=== PATIENT | male | born 1940 | race Caucasian/White ===

== ENCOUNTER 2022-04-25 09:50 | Outpatient (CLI) | payer MEDICARE, BC, SELFPAY ==
[2022-04-25 14:00] LABS: Basophils Absolute Auto 0.04 K/uL (0.00-0.30); Basophils Percent Auto 0.4 % (0.0-3.0); Eosinophils Absolute Auto 0.34 K/uL (0.00-0.50); Eosinophils Percent Auto 3.2 % (0.0-7.0); Hematocrit 36.9 % (37.0-53.0); Hemoglobin* 12.3 gm/dL (13.5-17.5); Immature Granulocytes Abs Auto 0.01 K/uL (0.00-0.30); Immature Granulocytes Pct Auto 0.1 %; Lymphocytes Percent Auto 13.2 % (20-44); Mean Corpuscular HGB Conc 33 gm/dL (32-36); Mean Corpuscular Hemoglobin 29 pg (26-34); Mean Corpuscular Volume 87 fL (80-100); Monocytes Percent Auto 7.3 % (0.0-11.0); Neutrophils Percent Auto 75.8 % (42.0-72.0); Platelet Count* 257 K/uL (140-440); RDW Coefficient of Variation % 12.8 % (11.5-15.5); Red Blood Count 4.25 m/uL (4.30-5.90); White Blood Count* 10.53 K/uL (4.50-11.00)
[2022-04-25 14:04] LABS: Slide Review Reflex No
== END 2022-04-25 09:51 | disposition home or self-care (01) ==
LOC: FBOREF 09:51
PROVIDERS: PCP Family Medicine; Visit Provider Family Medicine
DX: D64.9 Anemia, unspecified (principal)
CPT/HCPCS: 85025

== ENCOUNTER 2023-01-24 09:46 | Outpatient (CLI) | payer MEDICARE, BC, SELFPAY | END 2023-01-24 09:47 | disposition home or self-care (01) | PROVIDERS: PCP Family Medicine; Visit Provider Family Medicine | DX: I10 Essential (primary) hypertension (principal); E78.5 Hyperlipidemia, unspecified; D64.9 Anemia, unspecified | CPT/HCPCS: 80048; 80061; 84460 ==

== ENCOUNTER 2023-12-12 11:02 | Outpatient (CLI) | payer MEDICARE, BC, SELFPAY | END 2023-12-12 11:03 | disposition home or self-care (01) | PROVIDERS: PCP Family Medicine; Visit Provider Family Medicine | DX: E78.5 Hyperlipidemia, unspecified (principal); I10 Essential (primary) hypertension; Z12.5 Encounter for screening for malignant neoplasm of prostate | CPT/HCPCS: 80048; 80061; 84460; 85025; G0103 ==

== ENCOUNTER 2024-01-14 08:56 | Outpatient (CLI) | payer MEDICARE, BC, SELFPAY ==
--- NOTE | 2024-01-14 09:00 | CRLHL7_ITS ---
For Patients: As a result of the Century Cures Act, medical imaging exams and procedure reports are released immediately into your electronic medical record. You may view this report before your referring provider. If you have questions, please contact your health care provider. INDICATION: Otorrhea. Technique Noncontrast CT images of the temporal bones. COMPARISON: None. FINDINGS: Right Side: The external auditory canal is widely patent. Thickened tympanic membrane. Moderate opacification of the middle ear cavity, including severe opacification of the epitympanum. The ossicles are intact. The scutum is blunted. No evidence for otosclerosis. Normal morphology of the inner ear structures. Thinning of the superior semicircular canal roof raises the possibility of dehiscence. Severe mastoid air cell opacification. Left side: The external auditory canal is widely patent. The tympanic membrane is slightly thickened. Mild opacification of the middle ear cavity including Prussak space. The ossicles and scutum are intact. No evidence for otosclerosis. Normal morphology of the inner ear structures. Superior semicircular canal dehiscence. Moderate opacification of the mastoid air cells. Other: Moderate mucosal thickening in the maxillary sinuses. IMPRESSION: Right-side: 1. Moderate opacification of the middle ear cavity, including severe opacification of the epitympanum. The ossicles are intact. The scutum is blunted, raising the possibility of cholesteatoma. 2. Severe opacification of the mastoid air cells. 3. Thinning of the superior semicircular canal roof raises the possibility of dehiscence. Left side: 1. Mild opacification of the middle ear cavity. The ossicles and scutum are intact. 2. Moderate opacification of the mastoid air cells. 3. Superior semicircular canal dehiscence. Please note that all CT scans at this facility use dose modulation, iterative reconstruction, and/or weight-based dosing when appropriate to reduce radiation dose to as low as reasonably achievable. Dictated by Raul Ventura MD @ 01/22/2024 4:21:57 PM (Electronically Signed)
== END 2024-01-14 08:57 | disposition home or self-care (01) ==
LOC: CT 08:57
PROVIDERS: PCP Family Medicine; Visit Provider Otolaryngology
DX: H92.10 Otorrhea, unspecified ear (principal); H74.8X3 Other specified disorders of middle ear and mastoid, bilateral
CPT/HCPCS: 70480

== ENCOUNTER 2024-12-25 11:27 | Emergency (ER) | payer MEDICARE, BC, SELFPAY ==
--- OUTSIDE RECORDS SUMMARY | 2024-08-18 04:15 | XMS_ITS ---
Author Organization [facility] Address [address] [place], [place] [address] Care Team Providers Care Customer Success Manager Name Role Phone KATIE DELONG Unavailable [phone] Allergies No Known Allergies REASON FOR VISIT IGTN procedure 1 toes-[address] Delong, pt states that he is here to have his Rt great toe and his Rt 2nd toe nails on both the medial and lateral borders getting a IGTN procedure as they havebeen hurting for a while...GP Medications Medication SIG (Take, Route, Frequency, Duration) Notes Start Date End Date Status Isosorbide Mononitrate ER 30 MG Oral; Duration: 90 Days Active Clopidogrel Bisulfate 75 MG Oral; Durati on: 90 Days Active Doxazosin Mesylate 2 MG Oral; Duration: 90 Days Active Carvedilol 6.25 MG Oral; Duration: 90 Days Active Cephalexin 500 MG 1 capsule Orally twice a day; Duration: 5 days 08/25/2024 08/30/2024 Active Atorvastatin Calcium 40 MG Oral; Duratio n: 90 Days Active amLODIPine Besylate 10 MG Oral; Duration : 90 Days Active hydroCHLOROthiazide 12.5 MG Oral; Durati on: 90 Days Active Gabapentin 300 MG 1 capsule Orally Once a day Active Benazepril HCl 40 MG Oral; Duration: 90 Days Active Social History Tobacco Use: Social History Observation Description Date Details (start date - stop date) Former Smoker NA - NA Tobacco Control (Standard) Question Answer Notes Tobacco use: Former smoker How long has it been since you last smoked? Juan Miguel ter than 10 years Vital Signs Blood pressure systolic 130 mm Hg 08/19/19 25 Blood pressure diastolic 70 mm Hg 025 Height 5' 10 in 08/18/2024 Weight 190 lbs 08/18/2024 BMI 27.26 kg/m2 08/18/2024 Procedures Procedure Date Ordered Date Performed Result Body Sit e Phenol 08/18/2024 08/18/2024 N/A Encounters Encounter Location Date Provider Diagnosis [facility] [address] [place] [address] 08/18/2024 KATIE DELONG Ingrowing nail L60.0 ; Pain in right toe(s) M79.674 ; Hallux valgus (acquired), right foot M20.11 and Other hammer toe(s) (acquired), right foot M20.41 Assessments Encounter Date Diagnosis (ICD Code) Assessment Notes Treatment Notes Treatment Clinical Notes Section Notes 08/18/2024 Ingrowing nail (ICD-10 - L60.0) Discussed treatment options with the patient and family. Recommended a procedure to remove the ingrowing border(s) of the nail. Pt was educated that the nail or spicules of the nail may grow and require and additional procedure in the future. Instructions for care of the nail were described to the patient verbally and in print. Pt understood. Pt was consented for procedure, no gaurantees were given nor implied. right hallux and 2nd digit medial and lateral The toe(s) was cleansed with alcohol and anesthetized with 1% lidocaine plain circumferentially around the base of the toe, 3cc. A toe tourniquet was placed around the base of the toe. An turkmen anvil was used to sharply remove the border. 3 applications of phenol were used. The tourniquet was removed, triple antibiotic ointment and gauze bandaging were applied, held with coban. Pt given soaking instructions in print and questions were answered to their satisfaction. Instructions to monitor for signs of infection given, principally pain out of proportion, extending erythema, purulence. Follow up in 14 days 08/18/2024 Pain in right toe(s) (ICD-10 - M79.674) 08/18/2024 Hallux valgus (acquired), right foot (ICD-10 - M20.11) 08/18/2024 Other hammer toe(s) (acquired), right foot (ICD-10 - M20.41) 08/18/2024 Other Total time spen t caring for the patient today was at or exceeded 20 minutes. This includes time spent before the visit reviewing the chart, external medical records, external imaging, and imaging interpretation. It includes time spent during the visit , prescription management, and discussion regarding minor surgery including risk factors of patient and procedure. It includes time spent after the visit on documentation, coordination of care, and ordering of labs, testing, and imaging. Plan Of Treatment Medication Medication Name Sig Start Date Stop Date Notes Cephalexin 500 MG 1 capsule Orally twi ce a day; Duration: 5 days 08/25/2024 08/30/2024 Treatment Notes Assessment Notes Ingrowing nail Discussed treatment options with the patient and family. Recommended a procedure to remove the ingrowing border(s) of the nail. Pt was educated that the nail or spicules of the nail may grow and require and additional procedure in the future. Instructions for care of the nail were described to the patient verbally and in print. Pt understood. Pt was consented for procedure, no gaurantees were given nor implied. right hallux and 2nd digit medial and lateral The toe(s) was cleansed with alcohol and anesthetized with 1% lidocaine plain circumferentially around the base of the toe, 3cc. A toe tourniquet was placed around the base of the toe. An turkmen anvil was used to sharply remove the border. 3 applications of phenol were used. The tourniquet was removed, triple antibiotic ointment and gauze bandaging were applied, held with coban. Pt given soaking instructions in print and questions were answered to their satisfaction. Instructions to monitor for signs of infection given, principally pain out of proportion, extending erythema, purulence. Follow up in 14 days Other Total time spent car ing for the patient today was at or exceeded 20 minutes. This includes time spent before the visit reviewing the chart, external medical records, external imaging, and imaging interpretation. It includes time spent during the visit , prescription management, and discussion regarding minor surgery including risk factors of patient and procedure. It includes time spent after the visit on documentation, coordination of care, and ordering of labs, testing, and imaging. Progress Notes * Arnie JOHNSONDOB:[birth year] (84 yo M)Acc No.[id number]:08/18/2024 Progress Notes Patient: Arnie THOMPSON Provider: Marc DELONG DPM :1940 A ge:83 Y S ex:Male Date:08/18/2024 Phone: Address:[address] [place], [id number] Subjective: * Chief Complaints: * 1 . IGTN procedure 1 toes-[address] Delong. 2. pt states that he is here to have his Rt great toe and his Rt 2nd toe nails on both the medial and lateral borders getting a IGTN procedure as they have been hurting for a while...GP. * HPI: D epression Screening: PHQ-2 (2015 Edition) L ittle interest or pleasure in doing things? N ot at all, F eeling down, depressed, or hopeless? N ot at all, T otal Score 0 . H PI: ingrown procedure. * Medical History: H igh Cholesterol, High blood pressure. * Surgical History: c olonoscopy , hernia ingunial , elbow surgery-left , stent x4 . * Hospitalization/Major Diagno stic Procedure: H eart Attack . * Family History: F ather: . S pouse: alive. M other: , diagnosed with Cancer. 3 son(s) - healthy. . * Social History: T obacco Use: T obacco Control (Standard) T obacco use: F ormer smoker, H ow long has it been since you last smoked? G reater than 10 years. D rugs/Alcohol: D rugs H ave you used drugs other than those for medical reasons in the past 12 months??No. * Medications: T aking Gabapentin 300 MG Capsule 1 capsule Orally Once a day , Taking Benazepril HCl 40 MG Tablet Oral , Taking amLODIPine Besylate 10 MG Tablet Oral , Taking hydroCHLOROthiazide 12.5 MG Tablet Oral , Taking Atorvastatin Calcium 40 MG Tablet Oral , Taking Carvedilol 6.25 MG Tablet Oral , Taking Clopidogrel Bisulfate 75 MG Tablet Oral , Taking Doxazosin Mesylate 2 MG Tablet Oral , Taking Isosorbide Mononitrate ER 30 MG Tablet Extended Release 24 Hour Oral , Medication List reviewed and reconciled with the patient * Allergies: N .K.D.A. Objective: * Vitals: B P:130/70mm Hg, Ht:5' 10, Wt:190lbs, BMI:27.26Index, Wt-k.18, Ht-cm: 177.8. * Examination: G eneral Examination: GENERAL APPEARANCE: p leasant, well nourished, in no acute distress. SKIN n ormal, g ood turgor. MUSCULOSKELETAL: n o swelling or redness of the foot/ankle.? N eurologic: SENSATION G rossly intact bilaterally. SHARP SENSATION: P resent. MUSCLE POWER: b ilaterally , 5/5 , all compartments. ? O rthopedic: GAIT ABNORMALITY: a bsent. FOOT MORPHOLOGY: p lanus. DEFORMITIES: n o gross deformity. JOINT RANGE OF MOTION: f ull ROM of: ankle, subtalar joint, midtarsal joint , 1st metatarsophalangeal joint , without pain or crepitus. PAIN N o tenderness to palpation. V ascular: DORSALIS PEDIS PULSE: 2 /4 , bilaterally. POSTERIOR TIBIAL PULSE: 2 /4 , bilaterally. CAPILLARY REFILL: i nstantaneous. TEMPERATURE GRADIENT: w arm to warm , bilaterally. EDEMA: n one. D ermatologic: SKIN FINDINGS: w ell hydrated. HYPERTROPHIC LESION: N one. TINEA PEDIS: A bsent. I ngrown Nail: INPSECTION: r ight hallux, right 2nd digit, medial border, lateral border, nail plate pincher-shaped. Assessment: * Assessment: 1. I ngrowing nail - L60.0 (Primary) 2 . P ain in right toe(s) - M79.674? 3. H allux valgus (acquired), right foot - M20.11 4 . O ther hammer toe(s) (acquired), right foot - M20.41 Plan: * Treatment: 2. P ain in right toe(s) P rocedure: Phenol (Performed Date - 08/18/2024) 3. H allux valgus (acquired), right foot P rocedure: Phenol (Performed Date - 08/18/2024) 4. O ther hammer toe(s) (acquired), right foot P rocedure: Phenol (Performed Date - 08/18/2024) 5. O thers Notes: Total time spent caring for the patient today was at or exceeded 20 minutes. This includes time spent before the visit reviewing the chart, external medical records, external imaging, and imaging interpretation. It includes time spent during the visit , prescription management, and discussion regarding minor surgery including risk factors of patient and procedure. It includes time spent after the visit on documentation, coordination of care, and ordering of labs, testing, and imaging.? * Procedure Codes: 1 1750 REMOVAL OF NAIL BED/phenol, Modifiers: T5 , 95976 REMOVAL OF NAIL BED/phenol, Modifiers: T6 * Preventive Medicine: Screening/Special Tests: F all Risk F all Risk Assessment: N o falls in the past year, H ave you had any falls with injury in the past year? N o, H ave you had two or more falls in the past year? N o, P veronica of Care: D ocumented, A ssessment: P erformed. * * Electronic signature of MARTHA DELONG DPM on 12/25/2024 at 10:28 AM MDT Sign off status: Pending * Provider: Marc DELONG DPM Date: 0 08/18/2024 Generated for [place] pollard/Yesi/eTransmitting on: 0 12/25/2024 10:28 AM MDT History and Physical Notes * HPI (History of Present Illness) Category Sub-Category Detail Notes Category Not es Depression Screening PHQ-2 (2015 Edition) Little interest or pleasure in doing things?: Not at all Feeling down, depressed, or hopeless?: N ot at all Total Score: 0 HPI ingrown procedu re Examination Category Sub-Category Detail Notes Category Not es Ingrown Nail INPSECTION: right hallux, ri ght 2nd digit, medial border, lateral border, nail plate pincher-shaped Dermatologic SKIN FINDINGS: well hydrated HYPERTROPHIC LESION: None TINEA PEDIS: Absent Neurologic MUSCLE POWER: bilaterally , 5/5 , all com partments SHARP SENSATION: Present SENSATION Grossly intact bilat erally Orthopedic GAIT ABNORMALITY: absent FOOT MORPHOLOGY: planus JOINT RANGE OF MOTION: full ROM of: ankl e, subtalar joint, midtarsal joint , 1st metatarsophalangeal joint , without pain or crepitus DEFORMITIES: no gross deformity PAIN No tenderness to pal pation Vascular DORSALIS PEDIS PULSE: 2/4 , bilaterally EDEMA: none CAPILLARY REFILL: instantaneous TEMPERATURE GRADIENT: warm to warm , gama aterally POSTERIOR TIBIAL PULSE: 2/4 , bilaterall y General Examination GENERAL APPEARANCE: pleasant , well nourished, in no acute distress SKIN normal, good turgor MUSCULOSKELETAL: no swelling or redne ss of the foot/ankle
--- NOTE | 2024-12-25 11:28 | ED.GENADULT ---
HPI - General Adult General Date Seen: 12/25/24 Chief complaint: Abdominal Pain Stated complaint: Diverticulitis Time Seen by Provider: 12/25/24 11:28 History of Present Illness HPI narrative: 84 yo M with a history of hypertension, hyperlipidemia, hypogonadism, coronary disease, hearing loss, gout, and history of diverticulitis presenting to the ER today for abdominal pain. He is on Plavix and baby aspirin but no other anticoagulants. He has a history of hypertension and for several years had been dealing with trouble with low potassium, low sodium and resulting muscle cramps. A few weeks ago, on December 02, he saw his PCP, Dr. Husain who took him off hydrochlorothiazide and since then his cramps have resolved. He also notes that he has history of several episodes of diverticulitis with at least 4 bouts of diverticulitis confirmed by CT scan over the past several years. He also has flares of pain couple of times per year that are probably diverticulitis but typically get better when he switches to a clear liquid diet for a few days. He does not come to the doctor or get a CT scan every time he has pain. He was having symptoms that he thought were probably diverticular in nature in early November around December 02. He was seen in the [facility] because of his muscle cramps and incidentally mention the diverticulitis. He was put on empiric course of antibiotics without a CT scan at that time and felt like his diverticulitis got better. However several days ago symptoms started to come back again with left lower quadrant pain, mild nausea. He also notes that since his flare of diverticulitis in earlier November his stools been a little bit darker than normal but very formed, almost constipated and have been very small in caliber. He is not having a fever. He does feel nauseous but no vomiting. He and his plan to take an [address] cruise to [place] and an or actually scheduled to leave today, but there flight was delayed so now they are planning to leave tomorrow. He feels like his left lower quadrant pain is got a little bit worse so he wants to come to the ER to find out if he is having diverticulitis or not and whether not he should travel to [place]. Related Data Home Medications ?Medication ?Instructions ?Recorded ?Confirmed amlodipine 10 mg tablet 10 mg PO QDAY 04/25/22 12/25/24 aspirin 81 mg chewable tablet 81 mg PO QDAY 04/25/22 12/25/24 benazepril 40 mg tablet 40 mg PO QDAY 04/25/22 12/25/24 carvedilol 6.25 mg tablet 6.25 mg PO BID 04/25/22 12/25/24 doxazosin 2 mg tablet 2 mg PO QDAY 04/25/22 12/25/24 isosorbide mononitrate 30 mg 30 mg PO QDAY 04/25/22 12/25/24 tablet,extended release 24 hr timolol maleate 0.5 % eye drops 1 drp ophthalmic (eye) QDAY 04/25/22 12/25/24 multivitamin (Daily Multi-Vitamin 1 tab PO QDAY 01/24/23 12/25/24 tablet) atorvastatin 80 mg tablet 40 mg PO DAILY 12/02/24 12/25/24 Previous Rx's ?Medication ?Instructions ?Recorded clopidogrel 75 mg tablet 37.5 mg (1/2 x 75 mg) PO QDAY #90 09/07/24 tabs peg 3350-electrolytes 236 240 ml PO ONCE #1 bottle 12/15/24 gram-22.74 gram-6.74 gram-5.86 gram solution (Golytely) gabapentin 600 mg tablet 600 mg PO QDAY #90 tabs 12/17/24 ciprofloxacin HCl 500 mg tablet 500 mg PO BID #20 tabs 12/25/24 (Cipro) metronidazole 500 mg tablet 500 mg PO TID #30 tabs 12/25/24 prochlorperazine maleate 10 mg 10 mg PO TID PRN #10 tabs 12/25/24 tablet (Compazine) Allergies Allergy/AdvReac Type Severity Reaction Status Date / Time Perfume Allergy Severe Shortness Uncoded 12/25/24 13:01 of Breath [facility] Medical History (Updated 12/25/24 @ 14:01 by Severiano Worley MD) Mixed hyperlipidemia ?E78.2 - Mixed hyperlipidemia (ICD-10) Primary hypertension ?I10 - Essential (primary) hypertension (ICD-10) Chronic low back pain ?M54.50 - Low back pain, unspecified (ICD-10) ?G89.29 - Other chronic pain (ICD-10) History of gout ?Z87.39 - Personal history of other diseases of the musculoskeletal system and connective tissue (ICD-10) Mixed hearing loss, bilateral ?H90.6 - Mixed conductive and sensorineural hearing loss, bilateral (ICD-10) Vitiligo ?L80 - Vitiligo (ICD-10) Ocular rosacea ?L71.8 - Other rosacea (ICD-10) History of diverticulitis ?Z87.19 - Personal history of other diseases of the digestive system (ICD-10) Sleep related leg cramps (2009) ?G47.62 - Sleep related leg cramps (ICD-10) Primary hypogonadism in male ?E29.1 - Testicular hypofunction (ICD-10) History of ME (myocardial infarction) (2007) ?I25.2 - Old myocardial infarction (ICD-10) Coronary artery disease without angina pectoris ?I25.10 - Atherosclerotic heart disease of [place] coronary artery without angina pectoris (ICD-10) History of SCC (squamous cell carcinoma) of skin ?Z85.828 - Personal history of other malignant neoplasm of skin (ICD-10) History of basal cell carcinoma (BCC) ?Z85.828 - Personal history of other malignant neoplasm of skin (ICD-10) Chronic anemia ?D64.9 - Anemia, unspecified (ICD-10) Surgical History (Updated 04/25/22 @ 21:17 by Grant Husain MD) History of shoulder surgery ?Z98.890 - Other specified postprocedural states (ICD-10) History of Mohs micrographic surgery for skin cancer ?Z85.828 - Personal history of other malignant neoplasm of skin (ICD-10) ?Z98.890 - Other specified postprocedural states (ICD-10) History of phacoemulsification of cataract of both eyes with intraocular lens implantation ?Z98.41 - Cataract extraction status, right eye (ICD-10) ?Z98.42 - Cataract extraction status, left eye (ICD-10) ?Z96.1 - Presence of intraocular lens (ICD-10) History of tonsillectomy ?Z90.89 - Acquired absence of other organs (ICD-10) History of prostate surgery (08/08/10) ?Z98.890 - Other specified postprocedural states (ICD-10) History of left inguinal hernia repair (05/02/12) ?Z98.890 - Other specified postprocedural states (ICD-10) ?Z87.19 - Personal history of other diseases of the digestive system (ICD-10) History of elbow surgery (12/24/14) ?Z98.890 - Other specified postprocedural states (ICD-10) History of tympanomastoidectomy (06/10/17) ?Z98.890 - Other specified postprocedural states (ICD-10) History of lung surgery (01/06/18) ?Z98.890 - Other specified postprocedural states (ICD-10) History of heart artery stent (2007) ?Z95.5 - Presence of coronary angioplasty implant and graft (ICD-10) Family History (Updated 04/25/22 @ 21:15 by Grant Husain MD) Mother Vitiligo Breast cancer Lymphoma Social History (Updated 01/24/23 @ 13:13 by Naa Camilo ~ [facility], [facility]) Narrative: , three kids, retired, nonsmoker, no EtOH. Gets much of his care at [facility]. What is your current living situation?: I presently have a place to live Problems where you live: no known problems and declined to answer In the past 12 months, utilities in danger of being shut off: declined to answer In past 12 months, lack of transportation kept you from medical appts, meetings, work, or getting things needed for daily living: declined to answer In the past 12 mos, have been you worried that your food would run out before you had money to buy more?: declined to answer In the past 12 mos, the food you bought just didn't last and you didn't have money to buy more?: declined to answer Smoking Status: Former smoker How often does anyone, including family, friends and others, physically hurt you: decline to answer How often does anyone, including family, friends and others, insult or talk down to you: decline to answer How often does anyone, including family, friends and others, threaten you with harm: decline to answer How often does anyone, including family, friends and others, scream or curse at you: decline to answer Exam Narrative: Exam Narrative: Constitutional: Appears well-developed and well-nourished. Alert. Conversant. Non toxic. HENT: Head: Atraumatic. Nose: Nose normal. Mouth/Throat: Oral mucosa is clear and moist. no trismus. Pharynx normal. Tonsils symmetric. No tonsillar enlargement, erythema, or exudate. Eyes: Conjunctivae normal. EOM normal. Pupils equal, round, and reactive to light. No scleral icterus. Neck: Normal range of motion. Neck supple. No tracheal deviation present. Cardiovascular: Normal rate, regular rhythm. No gallop. No friction rub. No murmur heard. Symmetric radial artery pulses Pulmonary/Chest: Effort normal. No stridor. No respiratory distress. No wheezes. No rales. No rhonchi . No tenderness. Abdominal: Soft. Bowel sounds normal. No distension. No mass. I will LQ and left mid tenderness. No rebound. No guarding. No CVA tenderness Musculoskeletal: RUE: Normal range of motion. No tenderness. No deformity LUE: Normal range of motion. No tenderness. No deformity RLE: Normal range of motion. No edema. No tenderness. No deformity LLE: Normal range of motion. No edema. No tenderness. No deformity Neurological: Alert and oriented to person, place, and time. Normal strength. CN II-VII intact. No sensory deficit. GCS eye subscore is 4. GCS verbal subscore is 5. GCS motor subscore is 6. Normal coordination Skin: Skin is warm and dry. No rash noted. No pallor. Normal capillary refill. Psychiatric: Normal mood. Normal affect. Const: Vital Signs, click to edit/add: Vital Signs - 24 hr 12/25/24 11:29 Temperature 99.2 F Pulse Rate [Pulse Oximeter] 64 Respiratory Rate 16 Pulse Oximetry 96 Oxygen Delivery Me thod Room Air Course Vital Signs Vital signs: Initial Vital Signs Temperature 99.2 F 12/25/24 11:29 Temperature Source Temporal Artery Scan 12/25/24 11:29 Pulse Rate 64 12/25/24 11:29 Respiratory Rate 16 12/25/24 11:29 Pulse Oximetry 96 12/25/24 11:29 Oxygen Delivery Method Room Air 12/25/24 11:29 Vital Signs Temperature 99.2 F 12/25/24 11:29 Pulse Rate 64 12/25/24 11:29 Respiratory Rate 16 12/25/24 11:29 Pulse Oximetry 96 12/25/24 11:29 Oxygen Delivery Method Room Air 12/25/24 11:29 Temperature 99.2 F 12/25/24 11:29 Pulse Rate 64 12/25/24 11:29 Respiratory Rate 16 12/25/24 11:29 Pulse Oximetry 96 12/25/24 11:29 Oxygen Delivery Method Room Air 12/25/24 11:29 Medications Administered Medications: Discontinued Medications Generic Name Dose Route Start Last Admin Trade Name Charlene PRN Reason Stop Dose Admin Ondansetron HCl 4 mg 12/25/24 12:07 12/25/24 12:22 Ondansetron 2 Mg/Ml Inj IVP 12/25/24 12:08 4 mg ONCE ONE Administration Medical Decision Making MDM Narrative Medical decision making narrative: Presented to the Emergency Department with left lower quadrant abdominal pain. The differential diagnosis of abdominal pain includes: Appendicitis, Bowel Obstruction, Ulcer, Ischemia, Cholecystitis, Diverticulitis, Pancreatitis, UTI, kidney stone, Enteritis/Colitis, amongst many other etiologies. Laboratory testing does not reveal a cause for the patient's pain. CT confirms acute mild sigmoid diverticulitis without complications such as perforation, abscess, obstruction. No evidence for any mass in his colon that would explain his decreased stool caliber. He is set up to have a colonoscopy next month and I encouraged him to keep that appointment. He also has had a history of hypokalemia and hyponatremia secondary to hydrochlorothiazide which was discontinued a couple of weeks ago. Labs today look reassuring with sodium 139, potassium 4.2. Patient has plans to go on a 18 day cruise to [place], leaving tomorrow. Question is, with his active diverticulitis, is he safe to travel. Discussed with the patient that at this point there is no sign of severe diverticulitis or surgical complication requiring hospitalization. There is a risk that he could have worsening illness and decompensate such as developing perforation, obstruction, or abscess, or sepsis. Statistically speaking, based on the DINAMO trial, roughly 93% of patients with acute uncomplicated diverticulitis will recover without needing hospitalization. However with his advanced age and multiple recurrence of diverticulitis, difficult to extrapolate that data to his specific case. Will use his own judgment about whether he want wants transfer. Lab Data Labs: Lab Results 12/25/24 Range/Units 12:00 WBC 8.17 (4.50-11.00) K/uL RBC 4.62 (4.30-5.90) m/uL Hgb 13.8 (13.5-17.5) gm/dL Hct 40.4 (37.0-53.0) % MCV 87 (80-100) fL MCH 30 (26-34) pg MCHC 34 (32-36) gm/dL RDW Coeff of Clemencia 13.5 (11.5-15.5) % Plt Count 207 (140-440) K/uL Neut % (Auto) 71.3 (42.0-72.0) % Lymph % (Auto) 16.3 L (20-44) % [place] % (Auto) 6.5 (0.0-11.0) % Eos % (Auto) 5.1 (0.0-7.0) % Baso % (Auto) 0.6 (0.0-3.0) % Neut # (Auto) 5.82 (1.7-7.0) K/uL Lymph # (Auto) 1.30 (0.90-2.90) K/uL [place] # (Auto) 0.50 (0.00-0.90) K/UL Eos # (Auto) 0.42 (0.00-0.50) K/uL Baso # (Auto) 0.05 (0.00-0.30) K/uL Abs Immat Gran (auto) 0.02 (0.00-0.30) K/uL Imm/Tot Granulo (auto) 0.2 % Sodium 139 (135-149) mmol/L Potassium 4.2 (3.6-5.1) mmol/L Chloride 104 (96-114) mmol/L Carbon Dioxide 26 (20-32) mmol/L Anion Gap 9 (7-15) mEq/L BUN 13 (7-30) mg/dL Creatinine 0.9 (0.5-1.5) mg/dL Estimated Creat Clear 58.81 Estimated GFR 85 ml/min Glucose 154 H (60-115) mg/dL Lactate 1.9 (0.5-1.9) mmol/L Calcium 9.8 (8.4-10.6) mg/dL Imaging Data CT scan - abdomen: Attestation: I have reviewed the pertinent imaging results. Radiologist's impression: IMPRESSION: 1. Evidence of mild acute diverticulitis of the distal descending/proximal sigmoid colon. Discharge Plan Discharge Clinical Impression: Diverticulitis Patient Disposition: Home, Self-Care Condition: Stable Instructions: Diverticulitis (DC) Additional Instructions: As we discussed, please start on the antibiotics today start treating diverticulitis. Use the nausea medication if needed. Continue your other regular medications for now. Please come back to your nearest ER right away if you have worsening pain, fever, weakness, or any other concerns. Please follow-up with your regular doctor within 2-3 weeks and follow-up next month for your colonoscopy. . Prescriptions: New ciprofloxacin HCl [Cipro] 500 mg tablet 500 mg PO BID Qty: 20 0RF metronidazole 500 mg tablet 500 mg PO TID Qty: 30 0RF prochlorperazine maleate [Compazine] 10 mg tablet 10 mg PO TID PRNQty: 10 0RF No Action timolol maleate 0.5 % drops 1 drp ophthalmic (eye) QDAY carvedilol 6.25 mg tablet 6.25 mg PO BID doxazosin 2 mg tablet 2 mg PO QDAY isosorbide mononitrate 30 mg tablet extended release 24 hr 30 mg PO QDAY amlodipine 10 mg tablet 10 mg PO QDAY benazepril 40 mg tablet 40 mg PO QDAY aspirin 81 mg tablet,chewable 81 mg PO QDAY multivitamin [Daily Multi-Vitamin] Tablet 1 tab PO QDAY atorvastatin 80 mg tablet 40 mg PO DAILY clopidogrel 75 mg tablet 37.5 mg PO QDAY Qty: 90 0RF peg 3350-electrolytes [Golytely] 236-22.74-6.74 -5.86 gram recon soln 240 ml PO ONCE Qty: 1 0RF Rx Instructions: 4pm day prior to procedure. Drink 8oz glass every 15 minutes until 1/2 of solution is gone. 6 hours prior to procedure drink 8 oz glass every 15 minutes until remaining solution gone. gabapentin 600 mg tablet 600 mg PO QDAY Qty: 90 1RF Follow Up/Referrals: Grant Husain MD [Primary Care Provider, Family Practice] Stand Alone Forms: R2G Info Instructions
--- OUTSIDE RECORDS SUMMARY | 2024-12-25 11:28 | XMS_ITS | Encounter Summary ---
Author Organization [facility] Address [address] [place] [address] Care Team Providers Care Senior Center Manager Name Role Phone Elsewhere, Pcp Primary Care Provider Unavailabl e Encounter Details Date Type Department Care Team (Late st Contact Info) Description 04/28/2007 Historical Ophthalmology [facility]ST OPH Gabriel Lane M.D. 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 - 04/28/2007 2:53 PM CST Eye General CHIEF COMPLAINT Missing vision HISTORY OF PRESENT ILLNESS Saturday night he noted with left eye there was patches of missing information for 3 days. [place] center of vision was gone. It was worse yesterday but better today. 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 #4 borderline iop CDM Reports - EYEGEN Id: [id number] Status: Fnl documented in this encounter Plan of Treatment Not on file documented as of this encounter Visit Diagnoses Not on filedocumented in this encounter Additional Health Concerns Infection Onset Date Last Indicated Resolved Time COVID19 Pending 05/05/2020 05/05/2020 05/05/2020 1 0:28 PM FABRIC WORKER COVID19 Pending 05/30/2020 05/30/2020 05/30/2020 2 :39 AM FABRIC WORKER documented as of this encounter Care Teams Senior Center Manager Relationship Specialty Start Date End Date Elsewhere, Pcp PCP - General Internal Medicine 01/10/22 documented as of this encounter
--- OUTSIDE RECORDS SUMMARY | 2024-12-25 11:28 | XMS_ITS | Encounter Summary ---
Author Organization [facility] Address [address] [place] [address] Care Team Providers Care Manager Of Sales Name Role Phone Elsewhere, Pcp Primary Care Provider Unavailabl e Encounter Details Date Type Department Care Team (Late st Contact Info) Description 07/16/2008 Historical Ophthalmology [facility] Jenaro Khan M.D. 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 - 07/16/2008 10:48 AM CST Eye General CHIEF COMPLAINT Flashes and floaters right eye HISTORY OF PRESENT ILLNESS The patient describes floaters, flashes in right eye for the past 1 days, which is comes and goes, moderate. No blurred vision. No eye pain. No headaches. JJL: Has had occasional flashes in past. New yesterday, had floater that was new and stayed stationary, but will disappear with blinking. No other changes in vision. No complaints with left eye. IMPRESSION / REPORT / PLAN #1 Posterior vitreous detachment, right eye Reassured pt. Reviewed signs and symptoms of retinal tear/detachment and instructed pt to call immediately with these or other concerning symptoms. RTC 1 month for recheck. #2 cilioretinal artery occlusion left eye followed by Dr. 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) CDM Reports - EYEGEN Id: [id number] Status: Fnl documented in this encounter Plan of Treatment Not on file documented as of this encounter Visit Diagnoses Not on filedocumented in this encounter Additional Health Concerns Infection Onset Date Last Indicated Resolved Time COVID19 Pending 05/05/2020 05/05/2020 05/05/2020 1 0:28 PM DOCUMENTATION SUPERVISOR COVID19 Pending 05/30/2020 05/30/2020 05/30/2020 2 :39 AM DOCUMENTATION SUPERVISOR documented as of this encounter Care Teams Manager Of Sales Relationship Specialty Start Date End Date Elsewhere, Pcp PCP - General Internal Medicine 01/10/22 documented as of this encounter
--- OUTSIDE RECORDS SUMMARY | 2024-12-25 11:28 | XMS_ITS | Encounter Summary ---
Author Organization [facility] Address [address] [place] [address] Care Team Providers Care Tank House Operator Name Role Phone Elsewhere, Pcp Primary Care Provider Unavailabl e Encounter Details Date Type Department Care Team (Late st Contact Info) Description 06/26/2007 Historical Ophthalmology [facility]ST O[facility] Gabriel Lane M.D. 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 #4 borderline iop CDM Reports - EYEGEN Id: [id number] Status: Fnl documented in this encounter Plan of Treatment Not on file documented as of this encounter Visit Diagnoses Not on filedocumented in this encounter Additional Health Concerns Infection Onset Date Last Indicated Resolved Time COVID19 Pending 05/05/2020 05/05/2020 05/05/2020 1 0:28 PM DEPARTMENT CLINICIAN COVID19 Pending 05/30/2020 05/30/2020 05/30/2020 2 :39 AM DEPARTMENT CLINICIAN documented as of this encounter Care Teams Tank House Operator Relationship Specialty Start Date End Date Elsewhere, Pcp PCP - General Internal Medicine 01/10/22 documented as of this encounter
[2024-12-25 11:29] VITALS: PULSE 64; RESP 16; TEMP 37.3; O2SAT 96; BMI 28.2
--- OUTSIDE RECORDS SUMMARY | 2024-12-25 11:29 | XMS_ITS | Encounter Summary ---
Author Organization [facility] Address [address] [place] [address] Care Team Providers Care Quality Assurance Tester Name Role Phone Elsewhere, Pcp Primary Care Provider Unavailabl e Encounter Details Date Type Department Care Team (Late st Contact Info) Description 07/20/2008 Historical Ophthalmology RST OPH Cynthia Romero M.D. 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 - 07/20/2008 11:16 AM CST Eye General CHIEF COMPLAINT Increase in flashes and floaters right eye HISTORY OF PRESENT ILLNESS The patient was seen Saturday and was told he had a vitreous detachment right eye. Describes light flashes last night followed by floaters this morning. Denies a curtain effect. Denies ocular pain. States vision left eye is poor. IMPRESSION / REPORT / PLAN #1 Operculated hole, right eye #2 Posterior vitreous detachment, right eye Recommend laser retinopexy right eye #3 cilioretinal artery occlusion left eye followed by Dr. 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, both eyes CDM Reports - EYEGEN Id: [id number] Status: Fnl documented in this encounter Plan of Treatment Not on file documented as of this encounter Visit Diagnoses Not on filedocumented in this encounter Additional Health Concerns Infection Onset Date Last Indicated Resolved Time COVID19 Pending 05/05/2020 05/05/2020 05/05/2020 1 0:28 PM 911 TELECOMMUNICATOR COVID19 Pending 05/30/2020 05/30/2020 05/30/2020 2 :39 AM 911 TELECOMMUNICATOR documented as of this encounter Care Teams Quality Assurance Tester Relationship Specialty Start Date End Date Elsewhere, Pcp PCP - General Internal Medicine 01/10/22 documented as of this encounter
--- OUTSIDE RECORDS SUMMARY | 2024-12-25 11:29 | XMS_ITS | Encounter Summary ---
Author Organization [facility] Address [address] [place] [address] Care Team Providers Care Storage Battery Inspector And Tester Name Role Phone Lily BARRAZA MD, Asher Green Primary Care Provider Tiny Huynh MD Unavailable [phone] Severiano Ring MD Unavailable Unavailable Sona Quinn MD Unavailable [phone] Venancio Elise MD Unavailable [phone] Hailey Lyons MD Unavailable [phone] Tiny Huynh MD Unavailable [phone] Grant Denise MD Unavailable [phone] Rowdy López MD Unavailable Robin Mcmanus MD Unavailable + [phone] Encounter Details Date Type Department Care Team (Late st Contact Info) Description 10/22/2012 Office Visit-[facility] Unknown, Provider Social History Tobacco Use Types Packs/Day Years Used Date Smoking Tobacco: Former Cigarettes Q uit: 05/27/1979 Smokeless Tobacco: Never Alcohol Use Standard Drinks/Week Comments Not Asked 0 (1 standard drink = 0.6 oz pur e alcohol) Sex and Gender Information Value Date Recorded Sex Assigned at Not on file 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 No. Pain Eval Current history of pain associated with this visit is denied. Allergies No Known Drug Allergy. Current Meds Lipitor 40 MG Tablet;TAKE 1 TABLET DAILY generic; RPT Doxycycline Hyclate 100 MG Tablet;TAKE 1 TABLET DAILY.; Rx Artificial Tears SOLN;TAKE TABLET PRN; RPT Aspir-81 81 MG Tablet Delayed Release;; RPT Benazepril HCl 40 MG Tablet;TAKE 1 TABLET DAILY.; RPT AmLODIPine Besylate 10 MG Tablet;TAKE 1 TABLET DAILY.; RPT Hydrochlorothiazide 25 MG Tablet;TAKE 1 TABLET DAILY.; RPT Atenolol 50 MG Tablet;TAKE 1 TABLET DAILY.; RPT Plavix 75 MG Tablet;TAKE 1 TABLET DAILY.; RPT AAA-MED RECONCILE;; RPT. Med list offered and patient declined. Signature Signed By: Araceli King ; 10/23/2012 7:08 AM IRRIGATION WORKER. documented in this encounter Plan of Treatment Upcoming Encounters Date Type Department Care Team (Late st Contact Info) Description 01/06/2025 9:40 AM CDT Office Visit [facility] [address] [facility] [address] [place] [address] Robin Mcmanus MD [address] [place] [address] documented as of this encounter Visit Diagnoses Not on filedocumented in this encounter Care Teams Storage Battery Inspector And Tester Relationship Specialty Start Date End Date Asher Bautista MD, [address] [place] [address] PCP - General 04/10/12 Tiny Huynh MD [address] [address] MD Ophthalmology 02/23/15 Severiano Ring MD [address] [place] [address] Ophthalmology 02/23/15 Sona Quinn MD [address] [id number] MD Ophthalmology 02/23/15 Venancio Elise MD [address] 550335 Resident Ophthalmology 04/10/17 Hailey Lyons MD [address] [place] [address] [id number] Ophthalmology 06/25/19 Tiny Huynh MD [address] [place] [address] [id number] Assigned Surgical Provider 03/18/20 Grant Denise MD [address] [place] [address] [id number] Assigned Pediatric Specialist Provider 03/18/20 06/26/20 Rowdy Ló[place] [address] [place], [place] [phone] Assigned Surgical Provider 04/10/20 Robin Mcmanus MD [address] [place] [phone] Assigned Surgical Provider 08/21/20 documented as of this encounter
--- OUTSIDE RECORDS SUMMARY | 2024-12-25 11:29 | XMS_ITS | Clinical Summary ---
Author Organization [facility] Address [address] [place] [id number] Care Team Providers Care Stockroom Supervisor Name Role Phone Grant Husain MD Primary Care Provider + Allergies Active Allergy Reactions Criticality Noted Date Comments Unlisted Allergen (Include Detail In Comments) *Unknown 04/29/2013 Perfumes and strong solvent Medications aspirin enteric coated 81 mg tablet Take 81 mg by mouth once daily with a meal. Active amLODIPine (NORVASC) 10 mg tablet Take 10 mg by mouth once daily. Active atenolol (TENORMIN) 50 mg tablet Take 50 mg by mouth once daily. Active atorvastatin (LIPITOR) 40 mg tablet Take 40 mg by mouth once daily. Active Benazepril HCl (LOTENSIN) 40 mg tablet Take 60 mg by mouth once daily. Active doxycycline (VIBRAMYCIN) 100 mg tablet Take 100 mg by mouth once daily. Active hydrochlorothiazid e (HCTZ) 25 mg tablet Take 25 mg by mouth once daily. Active multivitamin (MVI) tablet Take 1 tablet by mouth once daily. Active clopidogrel (PLAVIX) 75 mg tablet Take 75 mg by mouth once daily. Active acetaminophen (TYLENOL) 325 mg tablet Take 650 mg by mouth. Max acetaminophen dose: 4000mg in 24 hrs. Active sildenafil citrate (VIAGRA) 100 mg tablet Take 50-100 mg by mouth once daily if needed. Take 30min to 4 hours before sexual activity. Max 100mg/24hr. Active ranitidine (ZANTAC) 150 mg tablet Take 150 mg by mouth. As needed Active LORazepam (ATIVAN) 0.5 mg tabIndications:Fra cture dislocation of left elbow joint, closed, initial encounter Take 1 tablet by mouth every 6 hours if needed for Muscle Spasm. 12 tablet 0 12/23/19 15 Active ACETAMINOPHEN/DIPH ENHYDRAMINE (TYLENOL PM ORAL) Take 1 Tab by mouth at bedtime if needed. Active rx ondansetron (ZOFRAN ODT) 4 mg orally disintegrating tablet (ED DC MED)Indications:Na usea and vomiting, intractability of vomiting not specified, unspecified vomiting type Take 1 tablet by mouth every 8 hours if needed. 4 tablet 11/11/19 17 Active cefuroxime axetil 500 mg tabletIndications: Diverticulitis Take 1 Tablet (500 mg) by mouth two times daily. 14 Tablet 1 11/17/19 25 Active metroNIDAZOLE 500 mg tabletIndications: Diverticulitis Take 1 Tablet (500 mg) by mouth two times daily. 14 Tablet 1 11/17/19 25 Active Encounters Date Type Department Care Team Description 11/16/2024 3:07 AM CDT - 11/16/2024 5:36 AM CDT Emergency [address] [address] Luis Adamson MD Leg cramps (Primary Dx); Lightheadedness; Hypokalemia; Hyponatremia; Diverticulitis Discharge Disposition: Home Self Care 11/16/2024 Travel from Last 3 Months Social History Tobacco Use Types Packs/Day Years Used Date Smoking Tobacco: Former Cigarettes S tarted: 05/27/1970 Comments:quit cigar 1982 Alcohol Use Standard Drinks/Week Comments No 0 (1 standard drink = 0.6 oz pur e alcohol) Interpersonal Safety Answer Date Record ed Are you being hit, kicked, p ushed or yelled at (see row info)? No 11/16/2024 Interpersonal Safety Abuse 12 - 18 Not on file 11/16/2024 Interpersonal Safety Ambulatory Vulnerability No t on file 11/16/2024 Sex and Gender Information Value Date Recorded Sex Assigned at Not on file Legal Sex Male 5:44 AM PROGRAMS DIRECTOR Gender Identity Not on file Sexual Orientation Not on file Obstetrics History Last Filed Vital Signs Vital Sign Reading Time Taken Comments Blood Pressure 190/87 11/16/2024 3:12 AM CDT Pulse 74 11/16/2024 3:12 AM CDT Temperature 36.6 C (97.9 F) 11/16/2024 3:12 AM CDT Respiratory Rate 16 11/16/2024 3:12 AM CDT Oxygen Saturation 98% 11/16/2024 3:12 AM CDT Inhaled Oxygen Concentration - - Weight 91.2 kg (201 lb) 11/16/2024 3:12 AM CDT Height 180.3 cm (5' 11) 11/16/2024 3:12 AM CDT Body Mass Index 28.03 11/16/2024 3:12 AM CDT Plan of Treatment Health Maintenance Due Date Last Done Comments Tetanus booster 1953 Depression screening for age 12+ 1954 BMI (ht and wt on same day) for age 18+ 1960 Pneumococcal series for age 50+ (1 of 1 - PCV) 1992 Zoster (shingles) series for age 50+ (1 of 2) 1992 RSV vaccine for adults or (1 - 1-dose 75+ series) 2017 COVID-19 vaccine series ( season) 2024 04/24/2021, 07/07/2020 Influenza Vaccine (#1) 2025 Hepatitis B series for 19+ Aged Out N o longer eligible based on patient's age to complete this topic Medical Devices Implanted Type Area Life Sciences Manager Device Identifier Shelf Expiration Date Model / Serial / Lot Log [id number] - Tanya [id number] Lens Iol - 1 - Lens Iol Toric Iq At5 14.5 Implanted:Qty: 1 on 04/30/2013 by Severiano Ring MD at [facility] Left: Eye [employer] [id number] / [id number] / Procedures Procedure Name Priority Date/Time Associated Diagnosis Comments MAGNESIUM STAT 11/16/2024 3:35 AM CDT BASIC METABOLIC PANEL STAT 11/16/2024 3:35 AM CDT CBC W PLT NO DIFF STAT 11/16/2024 3:3 5 AM CDT from Last 3 Months Results * (ABNORMAL) CBC W PLT NO DIFF (11/16/2024 3:35 AM CDT) WHITE BLOOD COUNT 5.4 4.5 - 11.0 thou/cu mm 11/16/2024 4:00 AM [facility] RED BLOOD COUNT 3.96(L) 4.30 - 5.90 mil/cu mm 11/16/2024 4:00 AM [facility] HEMOGLOBIN 11.6(L) 13.5 - 17.5 g/dL 11/16/2024 4:00 AM [facility] HEMATOCRIT 33.7(L) 37.0 - 53.0 % 11/16/2024 4:00 AM [facility] MCV 85 80 - 100 fL 11/16/2024 4:00 AM [facility] MCH 29.3 26.0 - 34.0 pg 11/16/2024 4:00 AM [facility] MCHC 34.4 32.0 - 36.0 g/dL 11/16/2024 4:00 AM [facility] RDW 12.8 11.5 - 15.5 % 11/16/2024 4:00 AM [facility] PLATELET COUNT 187 140 - 440 thou/cu mm 11/16/2024 4:00 AM [facility] MPV 10.6 6.5 - 11.0 fL 11/16/2024 4:00 AM [facility] Blood BLOOD SPECIMEN / Unknown Venipuncture / Unknown 11/16/2024 3:35 AM CDT 11/16/2024 3:55 AM CDT us Luis Adamson MD HEMATOLOGY Final R esult [facility] [address] [place] [address] * MAGNESIUM (11/16/2024 3:35 AM CDT) MAGNESIUM 1.7 1.6 - 2.4 mg/dL 11/16/2024 4:15 AM [facility] Blood BLOOD SPECIMEN / Unknown Venipuncture / Unknown 11/16/2024 3:35 AM CDT 11/16/2024 3:55 AM CDT us Luis Adamson MD CHEMISTRY Final R esult [facility] [address] [place] [address] * (ABNORMAL) BASIC METABOLIC PANEL (11/16/2024 3:35 AM CDT) SODIUM 128(L) 136 - 145 mmol/L 11/16/2024 4:29 AM [facility] POTASSIUM 3.2(L) 3.5 - 5.1 mmol/L 11/16/2024 4:29 AM [facility] CHLORIDE 94(L) 98 - 107 mmol/L 11/16/2024 4:29 AM [facility] CO2,TOTAL 22 22 - 29 mmol/L 11/16/2024 4:29 AM [facility] ANION GAP 12 5 - 18 11/16/2024 4:29 AM [facility] GLUCOSE 164(H) 70 - 99 mg/dL 11/16/2024 4:29 AM [facility] CALCIUM 8.9 8.8 - 10.4 mg/dL 11/16/2024 4:29 AM [facility] Comment: Reference ranges for this test were updated on 03/31/2024 to reflect our healthy population more accurately. Reference range changes are not retroactively applied to results, but previous results using the same methodology can be interpreted in the context of the new reference range. BUN 11 8 - 23 mg/dL 11/16/2024 4:29 AM [facility] CREATININE 0.79 0.70 - 1.20 mg/dL 11/16/2024 4:29 AM [facility] BUN/CREAT RATIO 14 10 - 20 4:29 AM [facility] eGFR 89(L) >90 mL/min/1. 73m2 11/16/2024 4:29 AM CDT [facility] Comment:As of 2021, eG FR is calculated by the CKD-EPI creatinine equation without race adjustment. eGFR can be influenced by muscle mass, exercise, and diet. The reported eGFR is an estimation only and is only applicable if the renal function is stable. Blood BLOOD SPECIMEN / Unknown Venipuncture / Unknown 11/16/2024 3:35 AM CDT 11/16/2024 3:55 AM CDT Luis Adamson MD CHEMISTRY Final R esult [facility] [address] [place] [address] from Last 3 Months Insurance [employer] [place] [employer] ONLY MEDICARE PART A HB ONLY MEDICARE PART B HB ONLY MEDICARE PART B HB ONLY Advance Directives * Full Code (Latest Code Status on File) Date Activated Date Inactivated Comments 04/30/2013 12:08 PM 04/30/2013 8:52 PM Care Teams Stockroom Supervisor Relationship Specialty Start Date End Date Grant Husain MD [address] [place] [address] PCP - General Family Practice 03/13/23
--- OUTSIDE RECORDS SUMMARY | 2024-12-25 11:29 | XMS_ITS | Encounter Summary ---
Author Organization [facility] Address [address] [place] [address] Care Team Providers Care Leg Assembler Name Role Phone Lily BARRAZA MD, Asher Green Primary Care Provider Tiny Huynh MD Unavailable [phone] Severiano Ring MD Unavailable Unavailable Sona Quinn MD Unavailable [phone] Venancio Elise MD Unavailable [phone] Hailey Lyons MD Unavailable [phone] Tiny Huynh MD Unavailable [phone] Grant Denise MD Unavailable [phone] Rowdy López MD Unavailable Robin Mcmanus MD Unavailable + [phone] Encounter Details Date Type Department Care Team (Late st Contact Info) Description 05/12/2012 Office Visit-[facility] Unknown, Provider Social History Tobacco Use Types Packs/Day Years Used Date Smoking Tobacco: Former Cigarettes Q uit: 05/27/1979 Smokeless Tobacco: Never Alcohol Use Standard Drinks/Week Comments Not Asked 0 (1 standard drink = 0.6 oz pur e alcohol) Sex and Gender Information Value Date Recorded Sex Assigned at Not on file Legal Sex Male 4:02 AM MANAGER PHYSICAL Gender Identity Not on file Sexual Orientation Not on file documented as of this encounter Progress Notes * Unknown, Provider - 05/12/2012 9:45 AM CST Charge Manager: Daniel Green Status: Final Encounter: 2012-05-12 09:45:00.000 Type: Rooming Note Reason For Visit NIALL JOHNSON is a 71 year old male being seen in clinic for 6 month recheck with F. Do you have any other appointments, tests or procedures within the [facility] system for this same day? Yes. Pain Eval Current history of pain associated with this visit is denied. Personal Hx Behavioral history: No tobacco use. Home environment: No secondhand tobacco smoke in home. Allergies No Known Drug Allergy. Current Meds Med list offered and patient declined. Atenolol 50 MG Tablet;TAKE 1 TABLET DAILY.; RPT Plavix 75 MG Tablet;TAKE 1 TABLET DAILY.; RPT Aspir-81 81 MG Tablet Delayed Release;; RPT Artificial Tears SOLN;TAKE TABLET PRN; RPT Doxycycline Hyclate 100 MG Tablet;TAKE 1 TABLET DAILY.; Rx Benazepril HCl 40 MG Tablet;TAKE 1 TABLET DAILY.; RPT AmLODIPine Besylate 10 MG Tablet;TAKE 1 TABLET DAILY.; RPT Hydrochlorothiazide 25 MG Tablet;TAKE 1 TABLET DAILY.; RPT Lipitor 40 MG Tablet;TAKE 1 TABLET DAILY generic; RPT AAA-MED RECONCILE;; RPT. Signature Signed By: Daniel Green ; 05/12/2012 10:27 AM MANAGER PHYSICAL. GER PHYSICAL documented in this encounter Plan of Treatment Upcoming Encounters Date Type Department Care Team (Late st Contact Info) Description 01/06/2025 9:40 AM CDT Office Visit [facility] [address] [place] [address] Robin Mcmanus MD [address] [place] [phone] documented as of this encounter Visit Diagnoses Not on filedocumented in this encounter Care Teams Leg Assembler Relationship Specialty Start Date End Date Asher Bautista MD, [facility] [address] [place] [address] PCP - General 04/10/12 Tiny Huynh MD [address] [place] [address] [id number] MD Ophthalmology 02/23/15 Severiano Ring MD [address] [place] [address] Ophthalmology 02/23/15 Sona Quinn MD [address] [place] [address] [id number] MD Ophthalmology 02/23/15 Venancio Elise MD [address] [place] [address] [phone] Resident Ophthalmology 04/10/17 Hailey Lyons MD [address] [place] [address] [id number] MD Ophthalmology 06/25/19 Tiny Huynh MD [address] [place] [address] [phone] Assigned Surgical Provider 03/18/20 Grant Denise MD [address] [place] [address] Assigned Pediatric Specialist Provider 03/18/20 06/26/20 Rowdy López [place] [address] [place] [address] Assigned Surgical Provider 04/10/20 Robin Mcmanus MD [address] [place] [phone] Assigned Surgical Provider 08/21/20 documented as of this encounter
--- OUTSIDE RECORDS SUMMARY | 2024-12-25 11:29 | XMS_ITS | Clinical Summary ---
Author Organization [facility] Address [address] [place] [address] Care Team Providers Care Aerial Gunner Superintendent Name Role Phone Elsewhere, Pcp Primary Care Provider Unavailabl e Source Comments Patient records contain information from all sites at [facility]. For routine questions regarding patient records, call [phone] during business hours, M-F 8:00 AM - 5:00 PM Central Time. Record requests for emergency care only can be directed to [phone] at any time.[facility] Allergies Active Allergy Reactions Criticality Noted Date Comments Perfume Shortness of breath (Reselect Reaction) High 07/21/2013 Medications aspirin [address] tablet Take 1 tablet by mouth every morning. 8 Active lanolin/mineral oil/petrolatum (ARTIFICIAL TEARS OPHT) Administer 1 application into affected eye(s) as needed. Active acetaminophen (TYLENOL) 325 mg tablet Take 325 mg by mouth as needed for pain. Active timolol (TIMOPTIC) 0.5 % ophthalmic solution Administer 1 drop into affected eye(s). 2 Active multivitamin (Daily Vitamin Formula) tablet Take 1 tablet by mouth daily. 1 Active gabapentin (NEURONTIN) 600 mg tabletIndication s:Sleep Related Leg Cramps Take 0.5 tablets (300 mg total) by mouth at bedtime as needed (leg cramps). 60 tablet 3 Active clopidogreL (PLAVIX) 75 mg tablet TAKE 1/2 TABLET BY MOUTH EVERY DAY 90 tablet 3 Active triamcinolone (Kenalog) 0.1 % cream Apply 1 Application topically as needed. Apply to ankle. Active atorvastatin (Lipitor) 80 mg tablet Take 1 tablet (80 mg total) by mouth at bedtime. 90 tablet 3 4 Active hydroCHLOROthiaz carlos 12.5 mg tablet TAKE ONE TABLET BY MOUTH ONCE DAILY 90 tablet 3 4 Active doxazosin (Cardura) 2 mg tablet Take 1 tablet (2 mg total) by mouth daily. 90 tablet 3 4 Active benazepriL (Lotensin) 40 mg tablet TAKE ONE TABLET BY MOUTH ONCE DAILY 90 tablet 3 5 Active amLODIPine (Norvasc) 10 mg tablet TAKE ONE TABLET BY MOUTH ONCE DAILY IN THE MORNING 90 tablet 3 5 Active isosorbide mononitrate (Imdur) 30 mg 24 hr tablet Take 1 tablet (30 mg total) by mouth daily. 90 tablet 3 5 Active carvediloL (Coreg) 6.25 mg tablet take one tablet by mouth twice daily with meals 180 tablet 3 5 Active Active Problems Problem Noted Date Diagnosed Date Diverticulitis 02/02/2022 Bursitis Trochanteric Left 02/06/2021 Sleep Related Leg Cramps 02/01/2021 Overview (02/02/2022): Since about 2009 he has had intermittent leg cramps. Since about 2018 he has had these more frequent. 2020 - EMG normal. They occur mainly at night. They will last for a minute or too. They will occur mainly from the anterior foot to the ortiz. Anemia 02/01/2021 Overview (02/01/2021): He has had a chronic mild anemia. He saw hematology in 2018. They recommended monitoring counts over time which have remained stable. Cancer Skin Squamous Cell Personal History 02/25 Hypogonadism Primary Male 02/25/2019 Overview (02/25/2019): Reviewed with endocrine and they felt he had mild primary testicular insufficiency, but did not recommend treatment at this time. He uses Viagra for erectile deficiency. PreDiabetes 02/25/2019 Overview (02/02/2022): He has been running glucose fasting readings in the low 100's for several years. 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 He has another one that is being followed on the right. Coronary Artery Disease Without Angina Pectoris 05/03/2009 Overview (02/02/2022): Known CAD. Anterior wall TN in 2007. Received stents to LAD and OM. Last cath in 2008 - showed minimal (20-30%) stenoses and stents were widely patent. May 2020 stress echo showed exercise capacity average (estimated 6.6 METS; 77 % FAC) but was negative for ischemia. Hyperlipidemia 05/06/2007 Overview (02/02/2022): Treated with HMG Co A inhibitor. LDL 2021 was 58. Cancer Skin Basal Cell Personal History 01/24/20 07 Hypertensive Chronic Kidney Disease With Stage 1 Through Stage 4 Chronic Kidney Disease, Or Unspecified Chronic Kidney Disease 08/27/2005 Overview (02/02/2022): Hypertension for years starting BP meds around age 42. Known to have an element of white coat elevation on top of this. 2021 GFR 77 and BP monitor average 133/63 mmHg pulse 54. Resolved Problems Problem Noted Date Diagnosed Date Resolved Date Nodule Pulmonary 12/17/2017 02/02/2022 Overview (02/25/2019): Noted in 2017. He underwent wedge resection and the findings suggested an inflammatory reaction to possible prior infection (no lymphoproliferative disease). 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 Pain Chest Wall 02/25/2019 Shortness Of Breath 02/02/20 21 Atherosclerotic Heart Diseas e [place] Coronary Artery With Other Forms Angina Pectoris (Stable Angina/Angina Of Exertion) 02/01 Immunizations Immunization Administration Dates Next Due HZV (ZOSTAVAX) 06/26/2007 HepA Adult 05/08/2018,02/18/2017 HepB Adult 02/01/2021(Deferred: Other - pt will check with pcp) Influenza Split 03/29/2016, 5,04/07/2014,2012 Influenza TIV (IM) 02/09/2019 Influenza high dose QV(65 ye ars or older) (PF) 03/23/2021 Influenza, Seasonal, Injectable 03/29/2016 PCV13 01/23/2017 PPSV23 06/21/2008 RZV (SHINGRIX) 07/01/2019, 9(Deferred: Other - Pt states to have the 1st vaccine locally.),02/09/2019 SARS-COV-2 (COVID-19) - MODERNA(Discontinued) 04/24/2021,08/08/2020 Td Preservative Free (TENIVA C, DECAVAC) 08/27/2005,10/12/1996 Tdap 03/17/2012 influenza trivalent high dos e (HD)(PF) 02/24/2015,03/17/2012 influenza vaccine quad (FLUZONE/FLUARIX) (6 months and older)(PF) 04/04/2022,03/12/2020,03/28/2018 Family History Medical History Relation Name Comments Arthritis Mother andria lopez Breast cancer Mother andria lopez Hypertension Mother andria lopez Lymphoma Mother andria lopez Other cancer Mother andria lopez Tuberculosis Mother andria lopez Relation Name Status Comments Mother andria lopez Alive Social History Tobacco Use Types Packs/Day Years Used Date Smoking Tobacco: Former Cigarettes 1.5 10 0 05/27/1966 - 05/27/1969 Cigars Passive Smoke Exposure: Past Smokeless Tobacco: Never Tobacco Cessation:Counseling Given: Not Answered Comments:Cigarettes regularly 7741-4585 then cigars occasionally 7117-3954. Alcohol Use Standard Drinks/Week Comments No 0 (1 standard drink = 0.6 oz pur e alcohol) [facility] Utilities Answer Date Recorded In the past 12 months has e [employer], gas, oil, or water [employer] threatened to shut off services in your home? Patient declined 03/15/2024 Humiliation, Afraid, Rape, and Kick questionnair e Answer Date Recorded Within the last year, have y ou been afraid of your partner or ex-partner? Patient declined 10/16/2021 Within the last year, have y ou been humiliated or emotionally abused in other ways by your partner or ex-partner? Patient declined 10/16/2021 Within the last year, have y ou been kicked, hit, slapped, or otherwise physically hurt by your partner or ex-partner? Patient declined 10/16/2021 Within the last year, have y ou been raped or forced to have any kind of sexual activity by your partner or ex-partner? Patient declined 10/16/2021 Hunger Vital Sign Answer Date Recorded Within the past 12 months, y ou worried that your food would run out before you got the money to buy more. Patient declined Within the past 12 months, t he food you bought just didn't last and you didn't have money to get more. Patient declined PRAPARE - Transportation Answer Date Re corded In the past 12 months, has l ack of transportation kept you from medical appointments or from getting medications? Patient declined 03/15/2024 In the past 12 months, has l ack of transportation kept you from meetings, work, or from getting things needed for daily living? Patient declined 03/15/2024 Housing Stability Answer Date Recorded What is your living situation today? Patient dec lined 03/15/2024 Education Answer Date Recorded What is the highest level of school you have completed or the highest degree you have received? Bachelor's degree (e.g., BA, AB, BS) 02/25/2019 Sex and Gender Information Value Date Recorded Sex Assigned at Male 11/22/2017 10:52 AM CDT Legal Sex Male 4:04 PM PROPERTY DAMAGE CLAIMS ADJUSTOR Gender Identity Male 11/22/2017 10:52 AM CDT Sexual Orientation Straight 11/22/2017 10 :52 AM CDT Last Filed Vital Signs Vital Sign Reading Time Taken Comments Blood Pressure 158/75 03/19/2024 10:33 AM CDT avg of 5 Pulse 55 03/19/2024 10:33 AM CDT Temperature 36 C (96.8 F) 02/01/2021 1:06 PM CDT Respiratory Rate 13 05/30/2020 3:15 PM PROPERTY DAMAGE CLAIMS ADJUSTOR Oxygen Saturation 99% 06/03/2020 1:09 PM PROPERTY DAMAGE CLAIMS ADJUSTOR Inhaled Oxygen Concentration - - Weight 90.2 kg (198 lb 11.9 oz) 024 11:16 AM PROPERTY DAMAGE CLAIMS ADJUSTOR Height 175.4 cm (5' 9.06) 05/05/2024 1 1:16 AM PROPERTY DAMAGE CLAIMS ADJUSTOR Body Mass Index 29.3 05/05/2024 11:16 AM PROPERTY DAMAGE CLAIMS ADJUSTOR Plan of Treatment Health Maintenance Due Date Last Done Comments COVID-19 Vaccine ( season) 2024 04/24/2021, 08/08/2020, 07/07/2020 Depression Screening (Annual PHQ-2) 05/27/2024 Fall Risk Screen (Annual) 05/27/2024 Office Visit for Blood Pressure Check / Re-check 06/19/2024 03/19/2024 Influenza Vaccine (#1) 2025 , 03/22/2023, 04/04/2022, Additional history exists Creatinine Level (Kidney Function Test) 11/16/2025 11/16/2024, 03/18/2024, 03/13/2023, Additional history exists Fasting Glucose for Diabetes Screening 11/16/2025 11/16/2024, 03/18/2024, 03/13/2023, Additional history exists Potassium Level 11/16/2025 11/16/2024, 02/25, 03/13/2023, Additional history exists Sodium Level 11/16/2025 11/16/2024, 02/25, 03/13/2023, Additional history exists DTaP,Tdap,and Td Vaccines (3 - Td or Tdap) 04/15/2034 04/15/2024, 03/17/2012, 08/27/2005, Additional history exists Pneumococcal vaccine (50+ years) Completed 01/23/2017, 01/23/2017, 06/21/2008 Hepatitis A Vaccines Completed 05/08/2018, 02/19/20 17 Zoster Vaccines Completed 07/01/2019, 06/2018, 02/09/2019, Additional history exists RSV vaccine - (32-36 weeks) or 60+ years Completed 03/22/2023 IPV Vaccines Aged Out No longer eligi ble based on patient's age to complete this topic Medical Devices Implanted Type Area Weed Controller Device Identifier Shelf Expiration Date Model / Serial / Lot Conversions - Default Historical Implant Device Implanted:12/24 (Quantity not on file) Cardiac Other Other/Legacy - See Implant Description Description:Body Location - HEART. STENT X 4. Device Status Text - CardOther. Conversions - Default Historical Implant Device Implanted:12/23 (Quantity not on file) Cardiac Stent Description:Device Status Te xt - Cardiac. Elbow-Evolve Rad Head +2 26mm - Moss [id number] Implanted:Qty: 1 on 12/24/2014 Elbow Implant Left: Other/Legacy - See Implant Description MEDI-TECH INTL Description:Device Manufactu rer - Medi[employer]Tech Inc. Body Location - Other. Left. Device Status Text - ELBOW [id number]. Elbow-Evolve Rad Stem +2 8.5mm - Moss [id number] Implanted:Qty: 1 on 12/24/2014 Elbow Implant Other/Legacy - See Implant Description MEDI-TECH INTL Description:Device Manufactu rer - Medi[employer]Tech Inc. Body Location - Other. Left. Device Status Text - ELBOW [id number]. Conversions - Default Historical Implant Device Implanted:12/23 (Quantity not on file) Hardware e.g. pins/screws /rods Description:Device Status Te xt - Hardware. unknown location. Suture Fenton Bio-Comp Corkscrew 5.5 - Moss [id number] Implanted:Qty: 1 on 12/24/2014 Hardware e.g. pins/screws /rods Arthrex Description:Device Manufactu rer - Arthrex. Device Status Text - [id number]. Mesh Prolene 3 X 6 Pmii - Moss [id number] Implanted:Qty: 1 on 05/02/2012 Mesh or Patch Ethicon Description:Device Manufactu rer - Ethicon. Device Status Text - [id number]. Conversions - Default Historical Implant Device Implanted:12/24 (Quantity not on file) Ocular (Eye) Implant Bilateral: Other/Legacy - See Implant Description Description:Body Location - EYES. BOTH. Device Status Text - OcularImp. Procedures Procedure Name Priority Date/Time Associated Diagnosis Comments COMPREHENSIVE METABOLIC PANEL, S/P Routine 03/18/2024 10:23 AM CDT Hypertension Essential Primary from Last 3 Months or Most Recently Relevant to Health Maintenance Insurance [facility] Advance Directives For more information, please contact: [phone] * Full Code (Latest Code Status on File) Date Activated Date Inactivated Comments 01/06/2018 12:33 PM 01/07/2018 9:22 PM Question Answer Comments Full Code: Discussed Care Teams Aerial Gunner Superintendent Relationship Specialty Start Date End Date Elsewhere, Pcp PCP - General Internal Medicine 01/10/22
--- OUTSIDE RECORDS SUMMARY | 2024-12-25 11:29 | XMS_ITS | Encounter Summary ---
Author Organization [facility] Address [address] [place] [address] Care Team Providers Care Piece Dyer Name Role Phone Lily BARRAZA MD, Asher Green Primary Care Provider Tiny Huynh MD Unavailable [phone] Severiano Ring MD Unavailable Unavailable Sona Quinn MD Unavailable [phone] Venancio Elise MD Unavailable [phone] Hailey Lyons MD Unavailable [phone] Tiny Huynh MD Unavailable [phone] Grant Denise MD Unavailable [phone] Rowdy López MD Unavailable Robin Mcmanus MD Unavailable + [phone] Encounter Details Date Type Department Care Team (Late st Contact Info) Description 03/18/2013 Office Visit-[facility] INTERFACE P DEPT Alee Ashraf COA Social History Tobacco Use Types Packs/Day Years Used Date Smoking Tobacco: Former Cigarettes Q uit: 05/27/1979 Smokeless Tobacco: Never Alcohol Use Standard Drinks/Week Comments Not Asked 0 (1 standard drink = 0.6 oz pur e alcohol) Sex and Gender Information Value Date Recorded Sex Assigned at Not on file Legal Sex Male 4:02 AM CLINICAL DOCUMENTATION IMPROVEMENT SPECIALIST Gender Identity Not on file Sexual Orientation Not on file documented as of this encounter Progress Notes * Alee Ashraf COA - 03/18/2013 7:15 AM CDT Financial Sales Manager: ZackAlee villa Status: Final Encounter: 2013-03-18 07:15:00.000 Type: Rooming Note Reason For Visit NIALL JOHNSON is a 72 year old male being seen in clinic for follow up and cataract eval Do you have any other appointments, tests or procedures within the [facility] system for this same day? No. Pain Eval Current history of pain associated with this visit is denied. Personal Hx Behavioral history: No tobacco use. Allergies No Known Drug Allergy. Current Meds [ Med list offered and patient declined. ][ Med list printed and given to patient. ]. Atenolol 50 MG Tablet;TAKE 1 TABLET DAILY.; [...] 1 TABLET DAILY generic; RPT [facility]-MED RECONCILE;; RPT AAA-MED RECONCILE;; RPT AAA-MED RECONCILE;; RPT. Med list offered and patient declined. Signature Signed By: Alee Ashraf COA; 03/18/2013 8:15 AM CLINICAL DOCUMENTATION IMPROVEMENT SPECIALIST. documented in this encounter Plan of Treatment Upcoming Encounters Date Type Department Care Team (Late st Contact Info) Description 01/06/2025 9:40 AM CDT Office Visit [facility] Eye [place] [address] [facility] [address] [place] [phone] Robin Mcmanus MD [address] [place] [phone] documented as of this encounter Visit Diagnoses Not on filedocumented in this encounter Care Teams Piece Dyer Relationship Specialty Start Date End Date Asher Bautista MD, [address] [place] [address] PCP - General 04/10/12 Tiny Huynh MD [address] [place] [address] MD Ophthalmology 02/23/15 Severiano Ring MD [address] [place] [address] Ophthalmology 02/23/15 Sona Quinn MD [address] [place] [address] [id number] Ophthalmology 02/23/15 Venancio Elise MD [address] [facility] [address] [place], [place] [address] Resident Ophthalmology 04/10/17 Hailey Lyons MD [address] [address] MD Ophthalmology 06/25/19 Tiny Huynh MD [address] [place] [address] 954125 Assigned Surgical Provider 03/18/20 Grant Denise MD [address] [place] [address] [id number] Assigned Pediatric Specialist Provider 03/18/20 06/26/20 Rowdy Ló[place] [address] [place] [address] Assigned Surgical Provider 04/10/20 Robin Mcmanus MD [address] [place] [phone] Assigned Surgical Provider 08/21/20 documented as of this encounter
--- OUTSIDE RECORDS SUMMARY | 2024-12-25 11:29 | XMS_ITS | Encounter Summary ---
Author Organization [facility] Address [address] [place] [address] Care Team Providers Care Wheelchair Van Operator First Responder Name Role Phone Elsewhere, Pcp Primary Care Provider Unavailabl e Encounter Details Date Type Department Care Team (Late st Contact Info) Description 07/29/2008 Historical Ophthalmology [facility] O[facility] Cynthia Romero M.D. [address] [place] [address] Social History Tobacco Use Types Packs/Day Years Used Date Smoking Tobacco: Never Assessed Sex and Gender Information Value Date Recorded Sex Assigned at Male 11/22/2017 10:52 AM CDT Legal Sex Male 4:04 PM ROOFING SALES REPRESENTATIVE Gender Identity Male 11/22/2017 10:52 AM CDT Sexual Orientation Straight 11/22/2017 10 :52 AM CDT documented as of this encounter Progress Notes * Cynthia Romero M.D. - 07/29/2008 12:11 PM CST Eye General CHIEF COMPLAINT New Floaters right eye HISTORY OF PRESENT ILLNESS The patient describes increased small floaters in right eye for the past 3 days, which is constant,moderate and worse in bright lights. Denies flashes and diplopia. Pain, brow area right eye, x several days, occasionally. Patient reports pain at a level of 2/10. IMPRESSION / REPORT / PLAN #1 Operculated hole, right eye s/p laser #2 Posterior vitreous detachment, right eye s/p laser retinopexy right eye No new problems. pt reassured. 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, both eyes CDM Reports - EYEGEN Id: [id number] Status: Fnl documented in this encounter Plan of Treatment Not on file documented as of this encounter Visit Diagnoses Not on filedocumented in this encounter Additional Health Concerns Infection Onset Date Last Indicated Resolved Time COVID19 Pending 05/05/2020 05/05/2020 05/05/2020 1 0:28 PM ROOFING SALES REPRESENTATIVE COVID19 Pending 05/30/2020 05/30/2020 05/30/2020 2 :39 AM ROOFING SALES REPRESENTATIVE documented as of this encounter Care Teams Wheelchair Van Operator First Responder Relationship Specialty Start Date End Date Elsewhere, Pcp PCP - General Internal Medicine 01/10/22 documented as of this encounter
--- OUTSIDE RECORDS SUMMARY | 2024-12-25 11:29 | XMS_ITS | Encounter Summary ---
Author Organization [facility] Address [address] [place] [address] Care Team Providers Care Software Development Engineer Name Role Phone Lily BARRAZA MD, Asher Green Primary Care Provider [phone] Tiny Huynh MD Unavailable [phone] Severiano Ring MD Unavailable Unavailable Sona Quinn MD Unavailable [phone] Venancio Elise MD Unavailable [phone] Hailey Lyons MD Unavailable [phone] Tiny Huynh MD Unavailable [phone] Grant Denise MD Unavailable [phone] Rowdy López MD Unavailable Robin Mcmanus MD Unavailable + [phone] Encounter Details Date Type Department Care Team (Late st Contact Info) Description 11/05/2011 Office Visit-[facility] DEPT Unknown, Provider Social History Tobacco Use Types Packs/Day Years Used Date Smoking Tobacco: Never Assessed Sex and Gender Information Value Date Recorded Sex Assigned at Not on file Legal Sex Male 4:02 AM JACK FRAME TENDER Gender Identity Not on file Sexual Orientation Not on file documented as of this encounter Progress Notes * Unknown, Provider - 11/05/2011 11:15 AM CDT Survey Associate: Mandy Orosco Status: Final Encounter: 2011-11-05 11:15:00.000 Type: Rooming Note Reason For Visit NIALL JOHNSON is a 70 year old male being seen in clinic for 6 month rtn iop and HVF Do you have any other appointments, tests or procedures within the [facility] system for this same day? No. Pain [...] RPT [facility]-MED RECONCI[facility];; RPT. Signature Signed By: Mandy Orosco COA; 11/05/2011 11:49 AM JACK FRAME TENDER. documented in this encounter Plan of Treatment Upcoming Encounters Date Type Department Care Team (Late st Contact Info) Description 01/06/2025 9:40 AM CDT Office Visit [facility] [address] [facility] [address] [place] [address] Robin Mcmanus MD [address] [place] [phone] documented as of this encounter Visit Diagnoses Not on filedocumented in this encounter Care Teams Software Development Engineer Relationship Specialty Start Date End Date Asher Bautista MD, MD [address] [place] [address] PCP - General 04/10/12 Tiny Huynh MD [address] [place] [address] [place] [address] MD Ophthalmology 02/23/15 Severiano Ring MD [address] [address] Ophthalmology 02/23/15 Sona Quinn MD [address] [facility] [address] [place], [place] [address] MD Ophthalmology 02/23/15 Venancio Elise MD [address] [phone] Resident Ophthalmology 04/10/17 Hailey Lyons MD [address] [address] Ophthalmology 06/25/19 Tiny Huynh MD [address] [place] [address] 989295 Assigned Surgical Provider 03/18/20 Grant Denise MD [address] [place] [address] [phone] Assigned Pediatric Specialist Provider 03/18/20 06/26/20 Rowdy López [place] [address] [place] [address] Assigned Surgical Provider 04/10/20 Robin Mcmanus MD [address] [place] [phone] Assigned Surgical Provider 08/21/20 documented as of this encounter
--- OUTSIDE RECORDS SUMMARY | 2024-12-25 11:29 | XMS_ITS | Clinical Summary ---
Author Organization [place] Address [address] [place] [address] Care Team Providers Care Aluminizer Name Role Phone Lily BARRAZA MD, Asher Green Primary Care Provider Tiny Huynh MD Unavailable + [phone] Severiano Ring MD Unavailable Unavailable Sona Quinn MD Unavailable [phone] Venancio Elise MD Unavailable [phone] Hailey Lyons MD Unavailable [phone] Robin Mcmanus MD Unavailable + [phone] Allergies Active Allergy Reactions Criticality Noted Date Comments Perfume Shortness Of Breath High 07/21/2013 Medications clopidogrel (PLAVIX) 75 MG tabletIndication s:PT STOPPED TAKING 02/02/19 Take 1 tablet by mouth daily 37.5 mg, stopped on 01/24/19 Active aspirin 81 MG tablet Take 1 tablet by mouth every morning Active ARTIFICIAL TEAR OP Apply 1 drop to eye as needed Active benazepril (LOTENSIN) 40 MG tablet Take 40 mg by mouth 2 times daily Active amLODIPine (NORVASC) 10 MG tablet Take 10 mg by mouth every evening Active hydrochlorothiaz carlos (HYDRODIURIL) 25 MG tablet Take 25 mg by mouth every morning Active atorvastatin (LIPITOR) 40 MG tablet Take 40 mg by mouth every evening Active CIALIS 20 MG tablet Take 20 mg by mouth as needed 13 06/03/19 14 Active Acetaminophen (TYLENOL PO) Take 325 mg by mouth as needed for mild pain or fever Active METOPROLOL TARTRATE PO Take 50 mg by mouth every evening Active zaleplon (SONATA) 5 MG capsule TAKE 1 OR 2 CAPSULES BY MOUTH AT BEDTIME NEEDED FOR INSOMNIA MAY REPEAT DOSAGE X 1, ALLOW AT LEAST 4HRS BETWEEN TIME OF ADMINISTRATION - PT TAKES PRN 0 03/03/20 18 Active carvedilol (COREG) 12.5 MG tablet Take 12.5 mg by mouth 03/09/20 21 Active doxazosin (CARDURA) 2 MG tablet Take 2 mg by mouth 09/21/19 22 Active gabapentin (NEURONTIN) 600 MG tablet 09/14/19 22 Active hydrochlorothiaz carlos (HYDRODIURIL) 25 MG tablet Take 25 mg by mouth 02/02/20 21 Active isosorbide mononitrate (IMDUR) 30 MG 24 hr tablet Take 30 mg by mouth 06/26/19 22 Active timolol maleate (TIMOPTIC) 0.5 % ophthalmic solutionIndicati ons: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 Family History Medical History Relation Comments Cancer Mother Macular Degeneration Mother Glaucoma Paternal Grandmother Melanoma No family hx of Skin Cancer No family hx of Relation Status Comments Father Mother Paternal Grandmother Social History Tobacco Use Types Packs/Day Years Used Date Smoking Tobacco: Former Cigarettes Q uit: 05/27/1979 Smokeless Tobacco: Never Tobacco Cessation:Counseling Given: No Alcohol Use Standard Drinks/Week Comments Not Currently 0 (1 standard drink = 0.6 oz pur e alcohol) PHQ-2 Answer Date Recorded PHQ-2 Score 0 12/20/2021 Adolescent Education Answer Date Record ed Getting School Help Needed Not on file 03/11 Sex and Gender Information Value Date Recorded Sex Assigned at Not on file Legal Sex Male 4:02 AM MEDICAL LANGUAGE SPECIALIST Gender Identity Not on file Sexual Orientation Not on file Last Filed Vital Signs Vital Sign Reading Time Taken Comments Blood Pressure 167/78 02/19/2019 7:23 AM CDT Pulse 57 02/19/2019 7:23 AM CDT Temperature 36.6 C (97.9 F) 02/09/2019 1:05 PM CDT Respiratory Rate 12 02/09/2019 1:05 PM CDT Oxygen Saturation 97% 02/09/2019 1:05 PM CDT Inhaled Oxygen Concentration - - Weight 94.8 kg (209 lb) 02/09/2019 1:05 PM CDT Height 180.3 cm (5' 11) 02/09/2019 1:05 PM CDT Body Mass Index 29.15 02/09/2019 1:05 PM CDT Plan of Treatment Upcoming Encounters Date Type Department Care Team (Late st Contact Info) Description 01/06/2025 9:40 AM CDT Office Visit [facility] Eye [facility] [address] [facility] [address] [place] [phone] Robin Mcmanus MD [address] [place] [address] Health Maintenance Due Date Last Done Comments ADVANCE CARE PLANNING 1940 ANNUAL REVIEW OF HM ORDERS 1942 LIPID 1940 MEDICARE ANNUAL WELLNESS VISIT 11/27/2007 DTAP/TDAP/TD VACCINE (2 - Td or Tdap) 03/17/2022 03/17/2012, 08/27/2005, 10/12/1996 FALL RISK ASSESSMENT 12/20/2022 12/20/2021, 10/11/2021, 01/05/2020, Additional history exists COVID-19 VACCINE ( season) 2024 04/24/2021, 08/08/2020, 07/07/2020 PHQ-2 (once per calendar year) 2024 12/20/2021, 01/10/2021, 01/05/2020, Additional history exists INFLUENZA VACCINE (#1) 2025 , 04/04/2022, 03/23/2021, Additional history exists PNEUMOCOCCAL VACCINE 50+ YEARS Completed 01/23/2017, 06/21/2008 ZOSTER VACCINE Completed 07/01/2019, 01/25, 06/26/2007 RSV VACCINE Completed 03/22/2023 HPV VACCINE (No Doses Required) Completed MENINGITIS VACCINE Aged Out No longer eligible based on patient's age to complete this topic Medical Devices Implanted Type Area Supply Technician Device Identifier Shelf Expiration Date Model / Serial / Lot Eye Imp Iol Vasquez Pcl [id number] Acrysof Iq 16.5 Implanted:Qty: 1 on 07/28/2013 by Severiano Ring MD at [facility] Right: Eye [employer] 01/23/2018 [id number] / [id number] / Insurance [facility] MEDICARE BCBS [place] [employer] Care Teams Aluminizer Relationship Specialty Start Date End Date Asher Bautista MD, MD [address] [place] [address] PCP - General 04/10/12 Tiny Huynh MD [address] [address] Ophthalmology 02/23/15 Severiano Ring MD [address] [address] Ophthalmology 02/23/15 Sona Quinn MD [address] [phone] Ophthalmology 02/23/15 Venancio Elise MD [address] [place] [address] [address] Resident Ophthalmology 04/10/17 Hailey Lyons MD [address] [place] [address] Ophthalmology 06/25/19 Robin Mcmanus MD [address] [place] [phone] Assigned Surgical Provider 08/21/20
--- OUTSIDE RECORDS SUMMARY | 2024-12-25 11:29 | XMS_ITS | Encounter Summary ---
Author Organization [place] Address [address] [place] [address] Care Team Providers Care Electric Motor And Generator Assembler Name Role Phone Lily BARRAZA MD, Asher Green Primary Care Provider Tiny Huynh MD Unavailable [phone] Severiano Ring MD Unavailable Unavailable Sona Quinn MD Unavailable [phone] Venancio Elise MD Unavailable [phone] Hailey Lyons MD Unavailable [phone] Tiny Huynh MD Unavailable [phone] Grant Denise MD Unavailable [phone] Rowdy López MD Unavailable Robin Mcmanus MD Unavailable + [phone] Encounter Details Date Type Department Care Team (Late st Contact Info) Description 08/04/2013 Office Visit[facility] Unknown, Provider Social History Tobacco Use Types Packs/Day Years Used Date Smoking Tobacco: Former Cigarettes Q uit: 05/27/1979 Smokeless Tobacco: Never Alcohol Use Standard Drinks/Week Comments Not Asked 0 (1 standard drink = 0.6 oz pur e alcohol) Sex and Gender Information Value Date Recorded Sex Assigned at Not on file Legal Sex Male 4:02 AM INSULATION ESTIMATOR Gender Identity Not on file Sexual Orientation Not on file documented as of this encounter Progress Notes * Unknown, Provider - 08/04/2013 1:28 PM CDT Cableway Operator: Claire Gabriella Status: Final Encounter: 2013-08-04 13:28:00.000 Type: Eye Chart Note Message PT CALLED TO STATE THAT HE WONDERS IF HE IS HAVING A REACTION TO HIS DORZOLAMIDE AND OR BROMINIDIONE. HE HAS HAD ANTHONY WHEN WAKES UP IN THE AM AND IS GOING TO THE SLEEP CLINIC AT [place] ON SATURDAY. NOW HIS SOB IS UP AND HE IS HAVING IT DURING THE DAY. ON ATENOLOL AND RUNS A LOW PULSE. HE TOLD ME HE CHECKED HIS PULSE AND IT WAS 33-IN PAST IS 35. PER LONA SAEED AND MEAGAN, THE DROPS SHOULD NOT BE THE CAUS E AND HE SHOULD GO TO ER. I TOLD THE PT THIS AND URGED HIM TO GO. HE SAID HE DID NOT THINK IT WAS NECESSARY. HE WILL BE SEEN, SCHEDULED, TOMORROW. Signature Signed By: Gabriella Rangel ; 08/04/2013 1:32 PM INSULATION ESTIMATOR. documented in this encounter Plan of Treatment Upcoming Encounters Date Type Department Care Team (Late st Contact Info) Description 01/06/2025 9:40 AM CDT Office Visit [facility] [address] [place] [address] Robin Mcmanus MD [address] [place] [phone] documented as of this encounter Visit Diagnoses Not on filedocumented in this encounter Care Teams Electric Motor And Generator Assembler Relationship Specialty Start Date End Date Asher Bautista MD, [address] [place] [address] PCP - General 04/10/12 Tiny uHynh MD [address] [facility] [address] [place] [address] MD Ophthalmology 02/23/15 Severiano Ring MD [address] [place] [address] Ophthalmology 02/23/15 Sona Quinn MD [address] [place] [address] Ophthalmology 02/23/15 Venancio Elise MD [address] [place] [address] Resident Ophthalmology 04/10/17 Hailey Lyons MD [address] [place] [address] [phone] Ophthalmology 06/25/19 Tiny Huynh MD [address] [place] [address] [id number] Assigned Surgical Provider 03/18/20 Grant Denise MD [address] [place] [address] Assigned Pediatric Specialist Provider 03/18/20 06/26/20 Rowdy López [place] [address] [place] [address] Assigned Surgical Provider 04/10/20 Robin Mcmanus MD [address] [place] [phone] Assigned Surgical Provider 08/21/20 documented as of this encounter
--- OUTSIDE RECORDS SUMMARY | 2024-12-25 11:29 | XMS_ITS | Patient Health Record ---
Author Organization [facility] Address [address] [place], [place] [address] Care Team Providers Care Revenue Field Auditor Name Role Phone KATIE DELONG Unavailable [phone] GÓMEZ HUNG Unavailable [phone] Allergies No Known Allergies Reason For Referral No Information Medications Medication SIG (Take, Route, Frequency, Duration) Notes Start Date End Date Status Isosorbide Mononitrate ER 30 MG Oral; Du ration: 90 Days Active Clopidogrel Bisulfate 75 MG Oral; Durati on: 90 Days Active Doxazosin Mesylate 2 MG Oral; Duration: 90 Days Active Atorvastatin Calcium 40 MG Oral; Duratio n: 90 Days Active Carvedilol 6.25 MG Oral; Duration: 90 Days Active amLODIPine Besylate 10 MG Oral; Duration : 90 Days Active hydroCHLOROthiazide 12.5 MG Oral; Durati on: 90 Days Active Gabapentin 300 MG 1 capsule Orally Onc e a day Active Benazepril HCl 40 MG Oral; Duration: 90 Days Active Social History Tobacco Use: Social History Observation Description Date Details (start date - stop date) Former Smoker NA - NA Tobacco Control (Standard) Question Answer Notes Tobacco use: Former smoker How long has it been since you last smoked? Grea ter than 10 years Problems Problem Type SNOMED Code ICD Code Onset Dates Problem Status W/U Status Risk Notes Problem Ingrowing nail (305199975) Ingrowing nail (L60.0) Active confirmed Problem Acquired hallux valgus (00172970) Hallux valgus (acquired), right foot (M20.11) Active confirmed Problem Other hammer toe(s) (acquired), right foot (M20.41) Active confirmed Problem Pain in limb (95666623) Pain in right toe(s) (M79.674) Active confirmed Vital Signs Blood pressure diastolic 70 mm Hg 08/18/2024 Height 5' 10 in 08/18/2024 Blood pressure systolic 130 mm Hg 08/18/2024 Weight 190 lbs 08/18/2024 BMI 27.26 kg/m2 08/18/2024 Procedures Procedure Date Ordered Date Performed Result Body Sit e Avulsion Nail P or T 06/17/2024 06/17/2024 N/A Phenol 08/18/2024 08/18/2024 N/A Encounters Encounter Location Date Provider Diagnosis [facility] [address] [place] [address] 08/18/2024 KATIE WEINTRUB Ingrowing nail L60.0 ; Pain in right toe(s) M79.674 ; Hallux valgus (acquired), right foot M20.11 and Other hammer toe(s) (acquired), right foot M20.41 [facility] [address] [place] [address] 06/17/2024 VU HUNG Ingrowing nail L60.0 ; Pain in right toe(s) M79.674 ; Hallux valgus (acquired), right foot M20.11 and Other hammer toe(s) (acquired), right foot M20.41 [facility] [place] [address] [place] [address] 08/12/2024 KATIE WEINTRUB Ingrowing nail L60.0 ; Pain in right toe(s) M79.674 ; Hallux valgus (acquired), right foot M20.11 and Other hammer toe(s) (acquired), right foot M20.41 Assessments Encounter Date Diagnosis (ICD Code) Assessment Notes Treatment Notes Treatment Clinical Notes Section Notes 06/17/2024 Pain in right toe(s) (ICD-10 - M79.674) Approximately 35 mins were spent with the patient discussing the case and answering questions; greater than 50% of this encounter was spent counselling patient and coordinating care. 08/12/2024 Ingrowing nail (ICD-10 - L60.0) Discussed treatment options for ingrowing nail, made recommendation for partial nail avulsion followed by application of topical phenol to prevent recurrence. Will schedule procedure. right hallux and 2nd digit b/l phenol 06/17/2024 Ingrowing nail (ICD-10 - L60.0) He has pincher shape of the Rt hallux, 2nd and 3rd toenails which causing ingrown and having inflammation without infection. Discussed about treatment options for his ingrown toenails which he wants to have matricectomy of the Rt hallux and 2nd toenails bilateral borders but he can not have it done today due to having an upcoming trip that requires a lot of walking. Hence performed partial wedge resection of Rt hallux and 2nd toenails bilateral border without local anesthetic and no complications or bleeding. Recommended him using Abx ointment and bandaids on the Rt hallux for the next 2 days. Ok for wearing regular shoes and normal activities as tolerated. He will call back to schedule a f/u appt when he is back in town 08/18/2024 Ingrowing nail (ICD-10 - L60.0) Discussed [...] around the base of the toe. An guatemalan anvil was used to sharply remove the border. 3 applications of phenol were used. The tourniquet was removed, triple antibiotic ointment and gauze bandaging were applied, held with coban. Pt given soaking instructions in print and questions were answered to their satisfaction. Instructions to monitor for signs of infection given, principally pain out of proportion, extending erythema, purulence. Follow up in 14 days 06/17/2024 Hallux valgus (acquired), right foot (ICD-10 - M20.11) 08/12/2024 Pain in right toe(s) (ICD-10 - M79.674) 08/18/2024 Pain in right toe(s) (ICD-10 - M79.674) 06/17/2024 Other hammer toe(s) (acquired), right foot (ICD-10 - M20.41) 08/18/2024 Hallux valgus (acquired), right foot (ICD-10 - M20.11) 08/12/2024 Hallux valgus (acquired), right foot (ICD-10 - M20.11) 08/12/2024 Other hammer toe(s) (acquired), right foot (ICD-10 - M20.41) 08/18/2024 Other hammer toe(s) (acquired), right foot [...] and ordering of labs, testing, and imaging. 08/12/2024 Other Total time spen t caring for [...] labs, testing, and imaging. Plan Of Treatment No Information Insurance Providers Payer Name Payer Address Payer Phone Subscriber Number Group Number Insured Name Patient Relationship to Insured Coverage Start Date Coverage End Date MEDICARE PART B [address] [place], [place] [phone] [id number] Arnie Johnson Self - patient is the insured [facility] [place] PPO/HMO [address] [place], [place] [id number] Arnie Johnson Self - patient is the insured Medical (General) History Medical History History ICD Code High Cholesterol high blood pressure Surgical History Surgery Date(Month/Year) colonoscopy hernia ingunial elbow surgery-left stent x4 Hospitalization History Reason Date(Month/Year) Heart Attack
--- OUTSIDE RECORDS SUMMARY | 2024-12-25 11:29 | XMS_ITS | Encounter Summary ---
Author Organization [facility] Address [address] [place] [address] Care Team Providers Care Community Midwife Name Role Phone Elsewhere, Pcp Primary Care Provider Unavailabl e Encounter Details Date Type Department Care Team (Late st Contact Info) Description 11/03/2008 Historical Ophthalmology [facility] Cynthia Romero M.D. [address] [place] [address] Social History Tobacco Use Types Packs/Day Years Used Date Smoking Tobacco: Never Assessed Sex and Gender Information Value Date Recorded Sex Assigned at Male 11/22/2017 10:52 AM CDT Legal Sex Male 4:04 PM FRONT OFFICE SPEC Gender Identity Male 11/22/2017 10:52 AM CDT Sexual Orientation Straight 11/22/2017 10 :52 AM CDT documented as of this encounter Progress Notes * Cynthia Romero M.D. - 11/03/2008 10:14 AM CDT Eye General CHIEF COMPLAINT followup floaters right HISTORY OF PRESENT ILLNESS The patient describes floaters in right eye for the past 2 months, which is comes and goes,unchanged from previous visit. Sees jagged line in vision. States IMPRESSION / REPORT / PLAN #1 Operculated hole, right eye s/p laser #2 Posterior vitreous detachment, right eye s/p laser retinopexy right eye No new problems. pt reassured. 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, both eyes CDM Reports - EYEGEN Id: [id number] Status: Fnl documented in this encounter Plan of Treatment Not on file documented as of this encounter Visit Diagnoses Not on filedocumented in this encounter Additional Health Concerns Infection Onset Date Last Indicated Resolved Time COVID19 Pending 05/05/2020 05/05/2020 05/05/2020 1 0:28 PM FRONT OFFICE SPEC COVID19 Pending 05/30/2020 05/30/2020 05/30/2020 2 :39 AM FRONT OFFICE SPEC documented as of this encounter Care Teams Community Midwife Relationship Specialty Start Date End Date Elsewhere, Pcp PCP - General Internal Medicine 01/10/22 documented as of this encounter
--- OUTSIDE RECORDS SUMMARY | 2024-12-25 11:29 | XMS_ITS | Encounter Summary ---
Author Organization [facility] Address [address] [place] [address] Care Team Providers Care Rn Hospital Name Role Phone Lily BARRAZA MD, Asher Green Primary Care Provider Tiny Huynh MD Unavailable [phone] Severiano Ring MD Unavailable Unavailable Sona Quinn MD Unavailable [phone] Venancio Elise MD Unavailable [phone] Hailey Lyons MD Unavailable [phone] Tiny Huynh MD Unavailable [phone] Grant Denise MD Unavailable [phone] Rowdy López MD Unavailable oRbin Mcmanus MD Unavailable + [phone] Encounter Details Date Type Department Care Team (Late st Contact Info) Description 11/05/2012 Office Visit-[facility] Unknown, Provider Social History Tobacco Use Types Packs/Day Years Used Date Smoking Tobacco: Former Cigarettes Q uit: 05/27/1979 Smokeless Tobacco: Never Alcohol Use Standard Drinks/Week Comments Not Asked 0 (1 standard drink = 0.6 oz pur e alcohol) Sex and Gender Information Value Date Recorded Sex Assigned at Not on file Legal Sex Male 4:02 AM MATERIALS PLANNER Gender Identity Not on file Sexual Orientation Not on file documented as of this encounter Progress Notes * Unknown, Provider - 11/05/2012 9:15 AM CDT Loading Unit Operator Crimping: Naa Kasper Status: Amended, Final Encounter: 2012-11-05 09:15:00.000 Type: Rooming Note Reason For Visit NIALL JOHNSON is a 71 year old male being seen in clinic for f/u OHTN Do you have any other appointments, tests or procedures within the [facility] system for this same day? No. Pain Eval Current history of pain associated with this visit is denied. Personal Hx Behavioral history: No tobacco use. Home environment: No secondhand tobacco smoke in home. Allergies No Known Drug Allergy. Current Meds Aspir-81 81 MG Tablet Delayed Release;; RPT Atenolol 50 MG Tablet;TAKE 1 TABLET DAILY.; RPT Plavix 75 MG Tablet;TAKE 1 TABLET DAILY.; RPT AAA-MED RECONCILE;; RPT AAA-MED RECONCILE;; RPT AmLODIPine Besylate 10 MG Tablet;TAKE 1 TABLET DAILY.; RPT Hydrochlorothiazide 25 MG Tablet;TAKE 1 TABLET DAILY.; RPT Lipitor 40 MG Tablet;TAKE 1 TABLET DAILY generic; RPT Doxycycline Hyclate 100 MG Tablet;TAKE 1 TABLET DAILY.; Rx Artificial Tears SOLN;TAKE TABLET PRN; RPT Benazepril HCl 40 MG Tablet;TAKE 1 TABLET DAILY.; RPT. Med list offered and patient declined. Therapy Nursing care six Amended By: Naa Kasper ; 11/05/2012 8:42 AM MATERIALS PLANNER. Signature Signed By: Naa Kasper ; 11/05/2012 8:41 AM MATERIALS PLANNER. Signed By: Naa Kasper ; 11/10/2012 7:02 AM MATERIALS PLANNER. documented in this encounter Plan of Treatment Upcoming Encounters Date Type Department Care Team (Late st Contact Info) Description 01/06/2025 9:40 AM CDT Office Visit [facility] [address] [facility] [address] [place] [phone] Robin Mcmanus MD [address] [place] [address] documented as of this encounter Visit Diagnoses Not on filedocumented in this encounter Care Teams Rn Hospital Relationship Specialty Start Date End Date Asher Bautista MD, MD [address] [place] [address] PCP - General 04/10/12 Tiny Huynh MD [address] [place] [address] MD Ophthalmology 02/23/15 Severiano Ring MD [address] [place] [address] Ophthalmology 02/23/15 Sona Quinn MD [address] [place] [address] [phone] Ophthalmology 02/23/15 Venancio Elise MD [address] [place] [address] [phone] Resident Ophthalmology 04/10/17 Hailey Lyons MD [address] [place] [address]155 Ophthalmology 06/25/19 Tiny Huynh MD [address] [place] [address] Assigned Surgical Provider 03/18/20 Grant Denise MD [address] [place] [address] Assigned Pediatric Specialist Provider 03/18/20 06/26/20 Rowdy López [place] [address] [place] [address] Assigned Surgical Provider 04/10/20 Robin Mcmanus MD [address] [place] [phone] Assigned Surgical Provider 08/21/20 documented as of this encounter
--- NOTE | 2024-12-25 11:44 | CRLHL7_ITS ---
For Patients: As a result of the Century Cures Act, medical imaging exams and procedure reports are released immediately into your electronic medical record. You may view this report before your referring provider. If you have questions, please contact your health care provider. INDICATION: Left lower quadrant pain TECHNIQUE: CT abdomen and pelvis acquired with 96 cc Omnipaque 350 IV contrast. COMPARISON: None. FINDINGS: Apparent scarring or suture line is noted along the left major fissure. The liver is unremarkable. A subcentimeter hypoattenuating lesion is seen within the inferior right brandy liver which is too small to characterize. The gallbladder is partially distended. No biliary ductal dilatation. Spleen is unremarkable. The pancreas is unremarkable. Minimal thickening of the left adrenal gland without discrete lesion The kidneys are normal in size. Prominent renal pelvis without hydronephrosis. Bilateral renal cysts are noted. The urinary bladder is distended. Mild thickening is likely due to underdistention. Colonic diverticulosis. Mild stranding of the distal descending colon/proximal sigmoid colon may represent mild diverticulitis. The appendix is nondilated. Thickening of the gastric outlet is indeterminate but likely due to underdistention. The small bowel is unremarkable. No free air. No ascites. Subcentimeter mesenteric lymph nodes are noted and likely reactive. There are prominent inguinal lymph nodes bilaterally which have benign appearing fatty hilum. Prostate appears to be absent. The aorta is not aneurysmal with evidence of stenoses at the origin of its major branches. Bone windows demonstrate no suspicious lytic or sclerotic lesion. IMPRESSION: 1. Evidence of mild acute diverticulitis of the distal descending/proximal sigmoid colon. Please note that all CT scans at this facility use dose modulation, iterative reconstruction, and/or weight-based dosing when appropriate to reduce radiation dose to as low as reasonably achievable. Dictated by Kg Payne MD @ 12/25/2024 1:15:33 PM (Electronically Signed)
[2024-12-25 12:14] LABS: Lactate* 1.9 mmol/L (0.5-1.9)
[2024-12-25] MEDS: ONDANSETRON 2 MG/ML inj 4 MG IVP (12:22)
[2024-12-25 12:34] LABS: Chloride* 104 mmol/L (96-114); Sodium* 139 mmol/L (135-149)
[2024-12-25 12:35] LABS: Potassium* 4.2 mmol/L (3.6-5.1)
[2024-12-25 12:38] LABS: Anion Gap 9 mEq/L (7-15); Blood Urea Nitrogen* 13 mg/dL (7-30); Calcium* 9.8 mg/dL (8.4-10.6); Carbon Dioxide* 26 mmol/L (20-32); Creatinine* 0.9 mg/dL (0.5-1.5); Est. Creatinine Clearance* 58.81; Estimated Glomerular Filt Rate 85 ml/min; Glucose* 154 mg/dL (60-115)
[2024-12-25 12:41] LABS: Hematocrit 40.4 % (37.0-53.0); Hemoglobin* 13.8 gm/dL (13.5-17.5); Immature Granulocytes Abs Auto 0.02 K/uL (0.00-0.30); Immature Granulocytes Pct Auto 0.2 %; Mean Corpuscular HGB Conc 34 gm/dL (32-36); Mean Corpuscular Hemoglobin 30 pg (26-34); Mean Corpuscular Volume 87 fL (80-100); RDW Coefficient of Variation % 13.5 % (11.5-15.5); Red Blood Count 4.62 m/uL (4.30-5.90); White Blood Count* 8.17 K/uL (4.50-11.00)
[2024-12-25 12:45] LABS: Lymphocytes Absolute Auto 1.30 K/uL (0.90-2.90); Slide Review Reflex No
== END 2024-12-25 14:15 | disposition home or self-care (01) ==
PROVIDERS: Emergency Provider Emergency Medicine; PCP Family Medicine
DX: K52.9 Noninfective gastroenteritis and colitis, unspecified (principal)
CPT/HCPCS: 36415; 74177; 80048; 81025; 83605; 85025; 99284; J2405; Q9967

== ENCOUNTER 2025-02-04 08:10 | Outpatient (CLI) | payer MEDICARE, BC, SELFPAY ==
--- NOTE | 2025-02-04 09:07 | P.ANES_ITS ---
Anesthesia Charges Start Date/Time Anesthesia Start Date: 02/04/25 Anesthesia Start Time: 08:45 Stop Date/Time Anesthesia Stop Date: 02/04/25 Anesthesia Stop Time: 09:06 Summary Extremes of Age - Over 70 or under 1: INSPECTOR MACHINE CUT GLASS Coding CPT Codes CPT Codes: ANES LWR INTST SCR COLSC - 79323 ([id number]) P3 - PATIENT W/SEVERE SYS DISEASE, QK - CODING ADVISOR 2-4 CNCRNT ANES PROC, QX - INSPECTOR MACHINE CUT GLASS SVC W/ MD MED DIRECTION Additional Codes: Summary - Extremes of Age - Over 70 or under 1: INSPECTOR MACHINE CUT GLASS ([id number])
--- NOTE | 2025-02-04 09:07 | W.ANESCHARGE ---
Anesthesia Charges Start Date/Time Anesthesia Start Date: 02/04/25 Anesthesia Start Time: 08:45 Stop Date/Time Anesthesia Stop Date: 02/04/25 Anesthesia Stop Time: 09:06 Summary Extremes of Age - Over 70 or under 1: TAPE WEAVER Coding CPT Codes CPT Codes: ANES LWR INTST SCR COLSC - 53895 ([id number]) P3 - PATIENT W/SEVERE SYS DISEASE, QK - SCIENCE JOB TITLES 2-4 CNCRNT ANES PROC, QX - TAPE WEAVER SVC W/ MD MED DIRECTION Additional Codes: Summary - Extremes of Age - Over 70 or under 1: TAPE WEAVER ([id number])
--- NOTE | 2025-02-04 09:26 | W.ANESCHARGE ---
Anesthesia Charges Start Date/Time Anesthesia Start Date: 02/04/25 Anesthesia Start Time: 08:45 Stop Date/Time Anesthesia Stop Date: 02/04/25 Anesthesia Stop Time: 09:06 Summary Extremes of Age - Over 70 or under 1: MDA Coding CPT Codes CPT Codes: ANES LWR INTST SCR COLSC - 03895 ([id number]) QK - LUMBER KILN OPERATOR 2-4 CNCRNT ANES PROC, QX - HELMINTHOLOGY TEACHER SVC W/ MD MED DIRECTION, P3 - PATIENT W/SEVERE SYS DISEASE Additional Codes: Summary - Extremes of Age - Over 70 or under 1: MDA ([id number])
== END 2025-02-04 08:11 | disposition home or self-care (01) ==
LOC: OP CLINIC 08:11
PROVIDERS: PCP Family Medicine; Visit Provider Internal Medicine
DX: Z12.11 Encounter for screening for malignant neoplasm of colon (principal); Z86.0100 Personal history of colon polyps, unspecified; K57.30 Diverticulosis of large intestine without perforation or abscess without bleeding
CPT/HCPCS: 00812; 45378; 99100; J2704

== ENCOUNTER 2025-03-10 09:42 | Outpatient (CLI) | payer MEDICARE, BC, SELFPAY | END 2025-03-10 09:43 | disposition home or self-care (01) | PROVIDERS: PCP Family Medicine; Visit Provider Family Medicine | DX: I10 Essential (primary) hypertension (principal); E78.2 Mixed hyperlipidemia; Z98.890 Other specified postprocedural states; Z12.5 Encounter for screening for malignant neoplasm of prostate | CPT/HCPCS: 80048; 80061; 84153; 85025 ==